=== PATIENT | female | born 1945 | race Caucasian/White ===

== ENCOUNTER 2017-07-09 11:03 | Outpatient (CLI) | payer MEDICARE | END 2017-07-09 11:04 | disposition home or self-care (01) | LOC: BICMAMMO 11:03 | PROVIDERS: ATTEND Obstetrics & Gynecology | DX: Z12.31 Encounter for screening mammogram for malignant neoplasm of breast (principal) | CPT/HCPCS: 77063; 77067 ==

== ENCOUNTER 2018-01-13 08:08 | Outpatient (CLI) | payer MEDICARE, OTHER ==
--- NOTE | 2018-01-13 10:11 | ULT ---
ULTRASOUND CAROTID DOPPLER STANDARD: Date: 01/13/18 HISTORY: I65.23, G25.0. COMPARISON: None. TECHNIQUE: Real-time Pelayo scale, color Doppler, and spectral analysis was performed. FINDINGS: Antegrade flow to both vertebral arteries. No elevated peak systolic velocities within the internal c arotid arteries. IMPRESSION: No hemodynamically significant stenosis. POS: SANCHEZ
--- NOTE | 2018-01-13 13:18 | MRI ---
MRI BRAIN WITHOUT CONTRAST: Date: 01/13/18 HISTORY: Cerebrovascular disease. Bilateral hand tremors for 5 years. COMPARISON: None. TECHNIQUE: Brain MRI is performed without intravenous Gadolinium administration. Multisequential, multiplanar im aging is performed. FINDINGS: No hemorrhage on the axial gradient echo sequence. Calvarium has a normal T1 marrow signal intensity. Midline brain parenchymal structures are unremarka ble. Note is made of a partially empty sella. There are T2 and FLAIR white matter hyperintensities due to chronic small vessel ischemic change. The re is asymmetrically prominent T2 hyperintensity in the right garland radiata, which is presumed to be due to chronic small vessel ischemic changes. No parenchymal mass, mass effect, or midline shift. Brain volume is age-appropriate. Cortical young-wh ite matter differentiation is preserved. No evidence of hydrocephalus. Mild mucosal thickening of the sinuses and mastoid air cells. IMPRESSION: 1. Absent restricted diffusion. No acute infarct. 2. T2 and FLAIR white matter hyperintensities which are presumed to be due to chronic small vessel i schemic change of the white matter. There is a slightly asymmetric T2 and FLAIR white matter hyperint ensity in the right garland radiata without associated restricted diffusion. Asymmetric chronic small vessel ischemic changes are favored. Six month follow-up imaging to ensure stability. POS: SANCHEZ
== END 2018-01-13 08:09 | disposition home or self-care (01) ==
LOC: BICULT 08:08
PROVIDERS: ATTEND Specialist
DX: I63.9 Cerebral infarction, unspecified (principal); D53.9 Nutritional anemia, unspecified; G25.0 Essential tremor; I65.23 Occlusion and stenosis of bilateral carotid arteries; G93.89 Other specified disorders of brain
CPT/HCPCS: 70551; 93880

== ENCOUNTER 2018-07-12 10:53 | Outpatient (CLI) | payer MEDICARE, OTHER ==
--- NOTE | 2018-07-14 11:11 | MMO ---
Bilateral MAMMO Bilat Screen DDI+TOSHIA. CLINICAL HISTORY: Patient is 72 years old and is seen for screening. The patient has no family history of breast cancer. The patient has no personal history of cancer. VIEWS: The views performed were: bilateral craniocaudal with tomosynthesis and bilateral mediolateral oblique with tomosynthesis. FILMS COMPARED: The present examination has been compared to prior imaging studies performed at [facility] on 08/29/1999, 10/06/2000, 10/07/2001, 10/07/2002, 10/18/2003, 12/03/2004, 12/16/2005, 02/24/2007, 02/28/2008, 03/29/2012, 03/31/2013, 04/03/2014, 04/18/2015, 06/30/2016 and 07/09/2017, and at [facility] on 02/28/2009, 03/04/2010 and 03/11/2011. MAMMOGRAM FINDINGS: There are scattered fibroglandular densities. There are stable benign appearing calcifications seen in both breasts. There are no suspicious masses, calcifications or areas of architectural distortion. There are no suspicious masses, suspicious calcifications, or new areas of architectural distortion. IMPRESSION: THERE IS NO MAMMOGRAPHIC EVIDENCE OF MALIGNANCY. A ROUTINE FOLLOW-UP MAMMOGRAM IN 1 YEAR IS RECOMMENDED. THE RESULTS OF THIS EXAM WERE SENT TO THE PATIENT. ACR BI-RADS Category 2 - Benign finding MAMMOGRAPHY NOTE: 1. A negative mammogram report should not delay a biopsy if a dominant of clinically suspicious mass is present. 2. Approximately 10% to 15% of breast cancers are not detected by mammography. 3. Adenosis and dense breasts may obscure an underlying neoplasm.
== END 2018-07-12 10:54 | disposition home or self-care (01) ==
LOC: BICMAMMO 10:53
PROVIDERS: ATTEND Obstetrics & Gynecology
DX: Z12.31 Encounter for screening mammogram for malignant neoplasm of breast (principal)
CPT/HCPCS: 77063; 77067

== ENCOUNTER 2020-02-23 12:12 | Emergency (ER) | payer MEDICARE, OTHER ==
[2020-02-23] MEDS ORDERED: Ondansetron ODT 4 MG TAB ONE (12:30)
[2020-02-23 13:44] LABS: #Lymphocytes 0.4 thou/uL (1.20-3.40); #Monocytes 0.5 thou/uL (0.11-0.59); #Neutrophils 11.6 thou/uL (1.40-6.50); %Eosinophils 0.3 % (0.0-10.0); %Lymphocytes 3.1 % (21.0-51.0); %Monocytes 4.1 % (0.0-10.0); %Neutrophils 92.5 % (42.0-75.0); Hemoglobin 14.3 g/dL (12.0-16.0); Mean Corpuscular HGB CONC 34.4 g/dL (32.0-36.0); Mean Corpuscular Volume 89.9 fL (78.0-98.0); Platelet Count 168 thou/uL (130-400); RBC Distribution Width 11.9 % (11.5-14.5); Red Blood Cell (RBC) Count 4.61 mill/uL (4.20-5.40); White Blood Cell (WBC) Count 12.5 thou/uL (4.8-10.8)
--- NOTE | 2020-02-23 13:54 | RAD ---
XR Pelvis AP STANDARD History: Fall. Pain Comparison: Reference is made to an abdomen pelvis CT November 2019 Findings: Small acetabular osteophytes. Mild sclerosis of the pubic symphysis. Obturator rings are in tact. No acute fracture or malalignment. Mild dextro scoliosis lower lumbar spine. Small phlebolith right hemipelvis. Impression: Mild degenerative change. No acute osseous abnormality.
--- NOTE | 2020-02-23 13:56 | RAD ---
XR Hip Lt 2-3 View History: Fall. Comparison: None. Findings: No acute fracture or malalignment. Left obturator ring is intact. Acetabulum is intact. Impression: No displaced left hip fracture.
--- NOTE | 2020-02-23 14:02 | CT ---
CT CERVICAL SPINE WITH CORONAL AND SAGITTAL REFORMATIONS AND NO IV CONTRAST: HISTORY: Fall, neck pain FINDINGS: Multilevel degenerative changes are present. No fracture, subluxation or facet malalignment is identified. No prevertebral soft tissue swelling is apparent. The visualized lung apices are unremarkable. IMPRESSION: No CT evidence for fracture or traumatic subluxation.
--- NOTE | 2020-02-23 14:03 | CT ---
CT HEAD WITHOUT IV CONTRAST COMPARISON: None HISTORY: Vomiting after a fall one day ago. Patient hit back of head on concrete. TECHNIQUE: Axial CT imaging at 5 mm intervals from vertex through skull base without contrast FINDINGS: There is decreased attenuation in the periventricular white matter which is nonspecific but likely re flective of chronic small vessel ischemic changes. There is mild cerebral volume loss. The ventricular system is normal in size, shape, and position for the degree of sulcal atrophy. There is no evidence of an acute infarction, hemorrhage, mass effect, or midline shift. Skull base has a normal CT appearance. Visualized paranasal sinuses are clear. Osseous structures appear intact. No depressed calvarial fracture is seen. IMPRESSION: 1. No acute intracranial abnormality demonstrated. 2. Chronic small vessel ischemic changes and cerebral volume loss.
[2020-02-23 14:07] LABS: ALT (SGPT) 15 U/L (8-55); AST (SGOT) 16 U/L (5-34); Alkaline Phosphatase 72 U/L (40-110); Anion Gap 15 mmol/L (10-20); BUN (Urea Nitrogen) 14 mg/dL (9.8-20.1); Bilirubin, Total 0.9 mg/dL (0.2-1.2); Calc. Creatinine Clearance 0 mL/min (70-130); Calcium 9.4 mg/dL (7.8-10.44); Carbon Dioxide 25 mmol/L (23-31); Chloride 91 mmol/L (98-107); Estimated GFR-MDRD 67; Globulin 3.5 g/dL (2.4-3.5); Glucose 269 mg/dL (83-110); Lipase 5 U/L (8-78); Potassium 4.5 mmol/L (3.5-5.1); Protein, Total 7.5 g/dL (6.0-8.3); Sodium 126 mmol/L (136-145)
[2020-02-23] MEDS ORDERED: Ketorolac Tromethamine 30 MG/ML VIAL ONE (14:10)
[2020-02-23] MEDS ORDERED: Morphine 4 MG/ML VIAL ONE (14:10)
[2020-02-23] MEDS ORDERED: Metoclopramide HCl 10 MG/2 ML VIAL ONE (14:10)
[2020-02-23] MEDS ORDERED: Acetaminophen 500 MG TAB ONE (14:10)
[2020-02-23] MEDS ORDERED: Metoclopramide 10 MG/10 ML UDCUP ONE (14:10)
--- NOTE | 2020-03-03 17:53 | EKG ---
Test Reason : Blood Pressure : / mmHG Vent. Rate : 074 BPM Atrial Rate : 074 BPM P-R Int : 154 ms QRS Dur : 072 ms QT Int : 402 ms P-R-T Axes : 054 043 054 degrees QTc Int : 446 ms Normal sinus rhythm Normal ECG Confirmed by TAN AC, EVELYN ([id number]), editor managing director BELINDA AN ([id number]) on 03/03/2020 5:52:45 PM Referred By: TAN Confirmed By:EVELYN MADDOX MD
== END 2020-02-23 15:27 | disposition home or self-care (01) ==
LOC: ERS 12:12
DX: S06.0X0A Concussion without loss of consciousness, initial encounter (principal); S14.109A Unspecified injury at unspecified level of cervical spinal cord, initial encounter; S30.0XXA Contusion of lower back and pelvis, initial encounter; R11.2 Nausea with vomiting, unspecified; E11.9 Type 2 diabetes mellitus without complications; E78.5 Hyperlipidemia, unspecified; E78.00 Pure hypercholesterolemia, unspecified; I10 Essential (primary) hypertension; Z79.4 Long term (current) use of insulin; Z79.899 Other long term (current) drug therapy; W01.190A Fall on same level from slipping, tripping and stumbling with subsequent striking against furniture, initial encounter
CPT/HCPCS: 36415; 70450; 72125; 72170; 80053; 83690; 85025; 93005; 96365; 96375; J1885; J2270; J2765; Q0162

== ENCOUNTER 2020-03-06 17:02 | Inpatient (IN) | payer MEDICARE, OTHER ==
[2020-03-06] MEDS ORDERED: Ondansetron ODT 4 MG TAB PO PRN (20:12)
[2020-03-06] MEDS ORDERED: traMADol HCl 50 MG TAB PO PRN ×2 (20:12)
[2020-03-06] MEDS ORDERED: Insulin Regular 300 UNITS/3 ML VIAL SC PRN (20:12)
[2020-03-06] MEDS ORDERED: Morphine 2 MG/ML VIAL SLOW IVP PRN (20:12)
[2020-03-06] MEDS ORDERED: Dextrose 50% Abboject 50 ML SYRINGE SLOW IVP PRN (20:12)
[2020-03-06] MEDS ORDERED: Dextrose 5% in Water 1,000 ML IV PRN (20:12)
[2020-03-06] MEDS ORDERED: Ondansetron PF 4 MG/2 ML Vial IVP PRN (20:12)
[2020-03-06] MEDS: Acetaminophen 500 MG TAB PO SCH (21:27)
[2020-03-06] MEDS: Famotidine/PF 20 mg/2ml Vial SLOW IVP SCH (21:29)
[2020-03-06] MEDS: Dexamethasone 4 mg/ml Vial SLOW IVP SCH (21:30)
[2020-03-06] MEDS: Sodium Chloride 0.9% 1,000 ML IV SCH (23:34)
[2020-03-06 23:45] VITALS: BMI 27.8
--- NOTE | 2020-03-07 02:13 | CON ---
DATE OF CONSULTATION: 03/06/2020 HISTORY OF PRESENT ILLNESS: The patient is a 74-year-old female with a past medical history of hypertension, type 2 diabetes, who reports 12 days ago she had a mechanical fall. After this fall, she presented to the [facility] where she was evaluated with noncontrast head CT of the head and neck, as well as plain films of the pelvis and hips, which were all negative. She was discharged to home, but has had ongoing significant low back pain. She followed up with her PCP and was prescribed tramadol and Tylenol No. 3, which she is alternating regularly. The patient reports she developed severe constipation and urinary retention over the last three days. She presented to the ER for further evaluation. She had a noncontrast CT of the abdomen and pelvis, which was notable for severe L1 burst fracture with retropulsion and probable small fragment that indents the thecal sac. She was found to have approximately a 1000 mL retention within the bladder. This was drained with a Flanagan catheter. She was also found to have significant constipation and the patient was fecally disimpacted by the emergency department. I recommended a TLSO Clamshell brace, which she was placed in and she was transferred to [facility] for admission by the Trauma Service and neurosurgical consult. The patient denies any leg pain, weakness, numbness, tingling. The patient was given 10 mg of Decadron in the emergency department. PAST MEDICAL HISTORY: Hypertension, type 2 diabetes. PAST SURGICAL HISTORY: Cholecystectomy, hysterectomy. SOCIAL HISTORY: The patient is a former smoker. She does not drink or use any drugs. She lives at home with her family. ALLERGIES: SHE HAS NO KNOWN DRUG ALLERGIES. CURRENT MEDICATIONS: 1. Escitalopram. 2. Levothyroxine. 3. Pantoprazole. 4. Hydrochlorothiazide. 5. Clonazepam. 6. Telmisartan. 7. Desmopressin. 8. Aspirin 81. 9. Nitrofurantoin. REVIEW OF SYSTEMS: Per HPI. PHYSICAL EXAMINATION: VITAL SIGNS: Stable. GENERAL: Comfortable, no acute distress. HEAD: Normocephalic and atraumatic. EYES: PERRLA. Extraocular movements intact. ENT: [place], intact, moist. She has normal voice. NECK: Nontender. Free active range of motion. No meningismus or nuchal rigidity. CARDIAC: Regular rate and rhythm. PULMONARY: Symmetric chest expansion. No evidence of dyspnea. MUSCULOSKELETAL: She is moving all 4s easily in the bed. No focal motor weakness. No reflex asymmetry. Sensation is intact to light touch. BACK: TLSO brace appears to be fitting appropriately. NEUROLOGIC: A and O x4. No gross motor deficits are appreciated. ASSESSMENT AND PLAN: This is a 74-year-old female, who fell 12 days ago, who returned to the ER for ongoing back pain and development of constipation and urinary retention. She has on CT a significant L1 burst fracture with retropulsion with possible small fracture fragment, which indents the thecal sac. She should wear her TLSO brace at all times and we will keep her on bed press with Flanagan in place. We will keep her on steroids, Decadron 4 mg q.6h. We will make her n.p.o. at midnight. Discussed this plan with Dr. Winchester and he will relook the patient in the morning to discuss further. Job ID: [id number]
--- NOTE | 2020-03-07 02:21 | HP ---
TRAUMA ATTENDING DOCTOR: Dr. Sanchez. Activation level not applicable. HISTORY OF PRESENT ILLNESS: This is a 74-year-old female, who presented as a transfer from [facility] where the patient was seen and evaluated, status post mechanical fall two weeks ago. Per patient and ER report, she sustained a fall at her home while tying her shoes. The patient stood up, became dizzy and fell. She was seen and evaluated at that time and was discharged home. The patient reports that over the past 12 days, she has had progressive difficulty ambulating, increasing back pain. She further reports that she has been unable to urinate for the last three days. She also reports constipation. The patient was evaluated in [facility] and found to have an L1 burst fracture. Neurosurgery was notified and Trauma Services was asked to admit. Upon my evaluation this evening, the patient is somewhat drowsy, but able to converse briefly. She states that her pain is currently zero. ALLERGIES: NONE. PAST MEDICAL HISTORY: Chronic medical illnesses include hypertension, diabetes, hyperlipidemia, hypothyroidism, and dyslipidemia. HOME MEDICATIONS: Include: 1. Synthroid. 2. Pantoprazole. 3. Hydrochlorothiazide. 4. Clonazepam. 5. Telmisartan. 6. Desmopressin. 7. Aspirin 81 mg. FAMILY HISTORY: Noncontributory. SURGICAL HISTORY: Includes cholecystectomy, hysterectomy. SOCIAL HISTORY: Lives at home. Endorses occasional alcohol use. Former smoker, denies current use. Denies illicit drug use. REVIEW OF SYSTEMS: The remainder of a 10-point review of systems was performed and negative except as indicated in the HPI. PHYSICAL EXAMINATION: VITAL SIGNS: On evaluation include a temperature of 98.4, pulse 60, respirations 16, O2 saturation 96% on room air, blood pressure 143/70. GENERAL: Elderly appearing female, in no acute distress, lying in bed. Clamshell TLSO in place. HEENT: Head is normocephalic, atraumatic. Eyes, pupils are PERRL. Extraocular movements are intact. NECK: Supple. Trachea is midline. There is no midline tenderness to palpation. CHEST: Nontender to palpation. Normal work of breathing. Symmetric rise. CARDIOVASCULAR: Regular rate and rhythm. ABDOMEN: Benign. MUSCULOSKELETAL: Moves all extremities x4, 5/5 strength. NEURO: GCS is 15. No focal deficit is noted. No sensory deficit noted. LABORATORY FINDINGS: WBC 12.6, hemoglobin 14.8, hematocrit 42.2, platelet count 303. Sodium 127, potassium 3.5, chloride 87, carbon dioxide 29, BUN 23, creatinine 0.94, and glucose 207. AST and ALT within normal limits. Troponin less than 0.010. TSH within normal limits. Urinalysis reveals ketonuria, leukocyte esterase, positive wbc's 11-20, rare bacteria, and there were some squamous cells present in sample. RADIOGRAPHIC FINDINGS: 1. Chest x-ray negative for acute cardiopulmonary process. 2. CT of the abdomen and pelvis demonstrated an L1 burst fracture. MRI of the lumbar spine demonstrated an L1 burst fracture with retropulsion indenting the spinal cord and high-grade degenerative disk disease at L5-S1. 3. EKG with nonspecific T-wave changes, borderline prolonged QTc, sinus rhythm. ASSESSMENT: 1. Status post fall secondary to dizziness. 2. L1 burst fracture. 3. Acute traumatic pain. 4. Urinary retention. 5. Constipation. 6. Possible urinary tract infection, present on admission. 7. Hypochloremic hyponatremia. 8. History of diabetes. PLAN: Admit to Trauma Services. The patient has been seen and evaluated by Neurosurgery. Clamshell TLSO has been ordered and is in place. Patient may sit up in bed with TLSO in place; however, neurosurgery recommended bed rest until decision is made on surgical versus nonsurgical treatment. Home aspirin to be held at this time. Decadron q.6 hours per neurosurgical recommendations. The patient should be n.p.o. after midnight. Flanagan for urinary retention. Empiric antibiotics and follow urine culture. Begin bowel regimen for constipation. Pain management via p.o. and IV analgesics. PT and OT once cleared by Neurosurgery. Other supportive care as indicated. Plan for admission was discussed with the patient at bedside and all questions were answered prior to this dictation. Trauma Attending has been notified of admission. Job ID: [id number]
[2020-03-07] MEDS: Dexamethasone 4 mg/ml Vial SLOW IVP SCH ×4 (02:55→21:27)
[2020-03-07] MEDS: Acetaminophen 500 MG TAB PO SCH ×3 (02:57→15:11)
[2020-03-07 06:58] LABS: #Lymphocytes 0.5 thou/uL (1.20-3.40); #Monocytes 0.1 thou/uL (0.11-0.59); #Neutrophils 8.3 thou/uL (1.40-6.50); %Basophils 0.5 % (0.0-1.0); %Eosinophils 0.2 % (0.0-10.0); %Lymphocytes 5.8 % (21.0-51.0); %Monocytes 0.9 % (0.0-10.0); %Neutrophils 92.6 % (42.0-75.0); Hemoglobin 15.1 g/dL (12.0-16.0); Mean Corpuscular Hemoglobin 31.1 pg (27.0-31.0); Mean Corpuscular Volume 91.7 fL (78.0-98.0); Mean Platelet Volume 7.4 fL (7.4-10.4); Platelet Count 291 thou/uL (130-400); Red Blood Cell (RBC) Count 4.84 mill/uL (4.20-5.40)
[2020-03-07 07:11] LABS: Phosphorus 3.6 mg/dL (2.3-4.7)
[2020-03-07 07:14] LABS: Anion Gap 18 mmol/L (10-20); BUN (Urea Nitrogen) 17 mg/dL (9.8-20.1); Calc. Creatinine Clearance 85 mL/min (70-130); Calcium 8.9 mg/dL (7.8-10.44); Carbon Dioxide 22 mmol/L (23-31); Chloride 94 mmol/L (98-107); Estimated GFR-MDRD 77; Glucose 179 mg/dL (83-110); Magnesium 2.2 mg/dL (1.6-2.6); Potassium 3.6 mmol/L (3.5-5.1); Sodium 130 mmol/L (136-145)
[2020-03-07] MEDS: Sodium Chloride 0.9% 1,000 ML IV SCH (08:48)
[2020-03-07] MEDS: Famotidine/PF 20 mg/2ml Vial SLOW IVP SCH ×2 (08:48→21:27)
[2020-03-07] MEDS: Senokot S 8.6-50 MG TAB PO SCH ×2 (08:49→22:43)
[2020-03-07] MEDS: Sulfameth/Trimethoprim DS 800-160mg TAB PO SCH ×2 (08:49→21:26)
[2020-03-07] MEDS: Cyclobenzaprine 10 MG TAB PO PRN ×2 (08:50→15:43)
[2020-03-07] MEDS: Polyethylene Glycol 3350 17 GM Packet PO SCH (08:50)
--- NOTE | 2020-03-07 09:32 | PRG ---
DATE OF SERVICE: 03/07/2020 SUBJECTIVE: The patient was seen and examined. I agree with Christina Treviño's evaluation on 03/06/2020. The patient is a 74-year-old woman who had a fall nearly 2 weeks ago. She has had progressive back pain, requiring extensive pain medication. Ultimately, was evaluated in the emergency room last night. At that time, she was found to have urinary retention, and a catheter was placed draining 1000 mL of urine. She also has had constipation of bowel and had manual disimpaction. OBJECTIVE: NEUROLOGIC: The patient's motor and sensory function is full. Good strength throughout the lower extremity was obtained. Sensory exam was subjectively normal including in the groin area. She reports she had full feeling of the urinary catheter when it was placed. IMAGING: Including MRI and CT reveal L1 burst fracture with some retropulsion. On the MRI, it appears there is some slight contact of the retropulsed fragment with the tip of the conus. The conus however was not deviated. There are substantial CSF behind the conus. On the CT scan, the degree of compression is much more modest. IMPRESSION AND PLAN: The patient has an L1 burst fracture. She has urinary retention and constipation of bowel. While this could be related to her recent narcotic use, it may also be related to a primary conus injury. She has no other neurologic manifestations. The overall degree of compression of the conus is modest in my opinion. In my opinion, a trial of non-operative management with bracing as well as steroids should be tried. I am not certain that surgery would have any benefit with regard to improving conus function as the degree of compression is relatively modest. Furthermore posterior surgery alone would have little benefit given the lack of any compression and ability to decompress in directly posteriorly. Any meaningful efforts of decompression would likely involve efforts to access the anterior vertebral body with the associated morbidity and extensive surgery, particularly at her age. I think more likely that if this does represent conus dysfunction, it is more contusional and less active compression and therefore, not likely response to surgery. We will treat with TLSO bracing for now with close observation. We will also use Decadron 4 q.6. Job ID: [id number]
[2020-03-07] MEDS: HumaLOG 300 UNITS/3 ML VIAL SC PRN ×3 (13:13→21:27)
[2020-03-07] MEDS: Acetaminophen 325 MG TAB PO SCH ×2 (15:42→21:26)
--- NOTE | 2020-03-07 16:26 | PRG ---
DATE OF SERVICE: 03/07/2020 SUBJECTIVE: The patient was admitted earlier this morning status post fall approximately 12 days ago. She had been evaluated initially, but did not complain of back pain. She returned to the [facility], where she underwent further evaluation, at this time primarily complaining of low back pain. CT showed an L1 burst fracture, at which time she was transferred to our facility for neurosurgical evaluation. The patient was neurologically intact with the exception of reported constipation and urinary retention. This is somewhat complicated by her history of bladder dysfunction requiring Botox injection and a history of irritable bowel syndrome. She reports that she has had in the past due to her irritable bowel syndrome, episodes of constipation and at times diarrhea. This morning, she was evaluated again by Neurosurgery, specifically Dr. Saini, who reviewed her CTs and her MRIs and agreed with continuing conservative management with a TLSO brace and Decadron 4 mg every 6 hours. The patient was started on a diet this morning, which she is tolerating. Her pain is controlled. She will begin working with physical and occupational therapy today. PHYSICAL EXAMINATION: VITAL SIGNS: Temperature is 98.0, heart rate 64, blood pressure 158/77, respirations 16, and oxygen saturation 92% on room air. GENERAL: The patient is resting comfortably in bed. She is awake, alert, conversant, and appropriate. [place] Coma Scale is 15. HEENT: Unremarkable. LUNGS: Clear to auscultation with good inspiratory and expiratory effort, it is somewhat limited due to her brace. HEART: Regular rate and rhythm. ABDOMEN: Soft with active bowel sounds. EXTREMITIES: Neurovascularly intact x4. LABORATORY FINDINGS: White blood cell count 9.0, hemoglobin 15.1, hematocrit 44.4, platelets 291. Sodium 130, potassium 3.6, chloride 94, CO2 of 22, BUN 17, creatinine 0.74, glucose 179, magnesium 2.2, and phosphorus 3.6. There are no radiographs to review this morning. ASSESSMENT AND PLAN: 1. Status post ground level fall with delayed presentation of 12 days. 2. L1 burst fracture, neurologically stable at this time with questionable urinary retention and constipation due to this injury. 3. Suspected urinary tract infection on admission. Initial culture results at 12 hours showed no growth. We will continue on antibiotics. 4. Chronic hyponatremia. 5. History of diabetes, irritable bowel syndrome, and bladder dysfunction. PLAN: Plan will be to begin physical and occupational therapy, continue steroids per Neurosurgery, pain control, diet, pulmonary toilet, gastritis and mechanical VTE prophylaxis. The patient continues to be nonoperative. We will begin chemical VTE prophylaxis within next 24 hours. The patient was evaluated this morning with Dr. Bey during rounds. Job ID: [id number]
[2020-03-07] MEDS ORDERED: Nitrofurantoin Monohyd/M-Cryst 100 MG CAP PO SCH (21:00)
[2020-03-07] MEDS: Ibuprofen 600 MG TAB PO PRN (21:25)
[2020-03-07] MEDS: Atorvastatin Calcium 20 MG TAB PO SCH (21:26)
[2020-03-07] MEDS: clonazePAM 0.5 MG TAB PO SCH (21:27)
[2020-03-07] MEDS: Desmopressin 0.2 mg Tablet PO SCH (22:41)
[2020-03-08] MEDS: Acetaminophen 325 MG TAB PO SCH ×4 (03:42→21:14)
[2020-03-08] MEDS: Dexamethasone 4 mg/ml Vial SLOW IVP SCH ×4 (03:43→15:32)
[2020-03-08] MEDS: Levothyroxine Sodium 100 MCG TAB PO SCH (06:02)
[2020-03-08] MEDS: HumaLOG 300 UNITS/3 ML VIAL SC PRN ×3 (07:10→16:05)
[2020-03-08] MEDS: clonazePAM 0.5 MG TAB PO SCH ×2 (09:48→21:14)
[2020-03-08] MEDS: Escitalopram Oxalate 10 mg Tablet PO SCH (09:48)
[2020-03-08] MEDS: Senokot S 8.6-50 MG TAB PO SCH ×2 (09:48→21:15)
[2020-03-08] MEDS: Polyethylene Glycol 3350 17 GM Packet PO SCH (09:48)
[2020-03-08] MEDS: Hydrochlorothiazide 25 MG TAB PO SCH (09:48)
[2020-03-08] MEDS: Famotidine/PF 20 mg/2ml Vial SLOW IVP SCH ×2 (09:48→21:16)
[2020-03-08] MEDS: Losartan 25 MG TAB PO SCH (09:48)
[2020-03-08] MEDS: Sulfameth/Trimethoprim DS 800-160mg TAB PO SCH ×2 (09:49→21:14)
--- NOTE | 2020-03-08 10:13 | CON ---
DATE OF CONSULTATION: 03/08/2020 Ms. Sotelo is resting comfortably. She had a bowel movement at the bedside commode, which she reports felt normal to her. We removed the Flanagan and she has had one in-and-out catheterization, but also has had some spontaneous voiding, that was successful. She remains neurologically preserved otherwise. We will continue with the plan of conservative management of her L1 burst fracture. I still cannot exclude a primary conus injury, but given the lack of significant compression of the conus remain constant that the conservative management and bracing is the highest likelihood of recovery. Per situation, it is obviously complicated by the long history of urinary issues and previous Botox injections in this regard. Going very slowly with her mobilization. For today, we will continue with sitting upright at the edge of the bed into the bedside commode only. If things are stable tomorrow, we will allow her to program trainer the room and we will check an upright x-ray. She will need a rehab screen. Job ID: [id number]
--- NOTE | 2020-03-08 10:46 | PRG ---
DATE OF SERVICE: 03/08/2020 SUBJECTIVE: I visited the patient at the bedside this morning. She continues to have good lower extremity sensation and function. We attempted to remove her Flanagan yesterday, but she has continued to have some urinary retention. She required additional I's and O's yesterday evening. This morning, however, she is passing gas and feels like she may be able to try to urinate and have a bowel movement. OBJECTIVE: GENERAL: She is awake, alert, in no acute distress. EXTREMITIES: She has free active range of motion of all extremities. No focal motor weakness. Her TLSO brace is fitting appropriately. ASSESSMENT AND PLAN: We will try to get her up on a bedside commode to see if her bowel and bladder function have improved. We will follow up this progress closely. Continue to have her work too. Will allow her to sit on side of bed or bedside commode. Will check upright Lspine xray in the morning. If doing well may advance to standing tomorrow. Job ID: [id number] MTDD
[2020-03-08] MEDS: Atorvastatin Calcium 20 MG TAB PO SCH (21:15)
[2020-03-08] MEDS: Desmopressin 0.2 mg Tablet PO SCH (21:16)
[2020-03-08] MEDS: Insulin Regular 300 UNITS/3 ML VIAL SC PRN (21:20)
--- NOTE | 2020-03-08 21:46 | PRG ---
DATE OF SERVICE: 03/08/2020 SUBJECTIVE: The patient remains on the surgical floor. She is status post ground level fall with delayed presentation and is currently undergoing treatment for an L1 burst fracture. She has a possibility of urinary retention, constipation due to this injury, but it is complicated by her previous history of Botox injections for dysfunctional bladder and irritable bowel syndrome. Overnight, the patient had no issues. Overnight, she had one in and out catheterization otherwise did well. Her pain was controlled. She is tolerating a diet today. She had some urinary retention, requiring Flanagan being placed. She did also have a bowel movement. She worked with Physical and Occupational Therapy. Sitting at the side of the bed and tomorrow we will plan on having her more. Per Neurosurgery, her mobility will be closely guarded. Plans also for repeat standing radiographs tomorrow. PHYSICAL EXAMINATION: VITAL SIGNS: Temperature 97.8, heart rate 61, blood pressure 144/79, respirations 16, and oxygen saturation 93% on room air. GENERAL: The patient is resting comfortably in bed. She is awake, alert, conversant, appropriate. [place] Coma Scale is 15. HEENT: Unremarkable. LUNGS: Clear to auscultation bilaterally. HEART: Regular rate and rhythm. ABDOMEN: Soft with active bowel sounds. EXTREMITIES: Neurovascularly intact x4. LABORATORY DATA: Point of care testing shows continued elevated blood glucose, ranging from 240 to 340. There are no radiographs reviewed this morning. ASSESSMENT AND PLAN: 1. Status post ground level fall with delayed presentation of 12 days, currently hospital day 2. 2. L1 burst fracture. Neurologically stable at this time with questionable urinary retention and constipation due to this injury. 3. Chronic hyponatremia. 4. History of diabetes. 5. Irritable bowel syndrome. 6. Bladder dysfunction. PLAN: Plan will be again follow Neurosurgery's guidance regarding physical and occupational therapy, radiographs tomorrow. We will continue pain control, pulmonary toilet, gastritis, and mechanical VTE prophylaxis. We will discuss chemical VTE prophylaxis with Neurosurgery. We have also increased her to moderate sliding scale for her blood sugars. Post acute screening has been placed. Job ID: [id number]
[2020-03-08 21:53] LABS: Bilirubin Negative (Negative); Blood, Urine Negative (Negative); Clarity Clear (Clear); Glucose, Urine (Dipstick) Greater than 1000 mg/dL (Negative); Ketone, Urine Negative (Negative); Leukocyte 75 Leu/uL (Negative); Nitrite Negative (Negative); Protein, Urine (Dipstick) Negative (Neg-Trace); RBC/HPF 0-3 HPF (0-3); Squamous Epithelial 0-3 HPF (0-3); Urobilinogen Normal mg/dL (Less than 2); WBC/HPF 21-50 HPF (0-3)
[2020-03-08 22:03] LABS: Bacteria/HPF 1+ HPF (None Seen); Yeast-Budding 2+ HPF (None Seen)
[2020-03-08 22:04] LABS: Urine Culture Reflex Yes Yes
[2020-03-09] MEDS: cefTRIAXone\\ROCEPHIN 1 GM in Sodium Chloride 0.9% 100 ML IVPB SCH ×2 (00:02→22:29)
[2020-03-09] MEDS: Acetaminophen 325 MG TAB PO SCH ×4 (05:30→19:54)
[2020-03-09] MEDS: Ibuprofen 600 MG TAB PO PRN (05:34)
[2020-03-09] MEDS: Levothyroxine Sodium 100 MCG TAB PO SCH (05:34)
[2020-03-09] MEDS: Insulin Regular 300 UNITS/3 ML VIAL SC PRN ×4 (05:34→22:42)
[2020-03-09 05:35] LABS: #Lymphocytes 2.3 thou/uL (1.20-3.40); #Neutrophils 8.9 thou/uL (1.40-6.50); %Eosinophils 0.3 % (0.0-10.0); %Lymphocytes 18.6 % (21.0-51.0); %Monocytes 8.2 % (0.0-10.0); %Neutrophils 72.9 % (42.0-75.0); Mean Corpuscular HGB CONC 33.7 g/dL (32.0-36.0); Mean Corpuscular Hemoglobin 30.3 pg (27.0-31.0); Mean Corpuscular Volume 89.9 fL (78.0-98.0); Mean Platelet Volume 7.3 fL (7.4-10.4); Platelet Count 329 thou/uL (130-400); Red Blood Cell (RBC) Count 4.96 mill/uL (4.20-5.40); White Blood Cell (WBC) Count 12.2 thou/uL (4.8-10.8)
[2020-03-09 05:56] LABS: Anion Gap 13 mmol/L (10-20); BUN (Urea Nitrogen) 18 mg/dL (9.8-20.1); Calc. Creatinine Clearance 75 mL/min (70-130); Calcium 8.9 mg/dL (7.8-10.44); Carbon Dioxide 25 mmol/L (23-31); Chloride 96 mmol/L (98-107); Estimated GFR-MDRD 66; Glucose 181 mg/dL (83-110); Magnesium 2.1 mg/dL (1.6-2.6); Phosphorus 3.1 mg/dL (2.3-4.7); Potassium 3.6 mmol/L (3.5-5.1); Sodium 130 mmol/L (136-145)
[2020-03-09] MEDS: clonazePAM 0.5 MG TAB PO SCH ×2 (09:05→19:55)
[2020-03-09] MEDS: Losartan 25 MG TAB PO SCH (09:05)
[2020-03-09] MEDS: Senokot S 8.6-50 MG TAB PO SCH ×2 (09:05→19:55)
[2020-03-09] MEDS: Hydrochlorothiazide 25 MG TAB PO SCH (09:06)
[2020-03-09] MEDS: Escitalopram Oxalate 10 mg Tablet PO SCH (09:08)
[2020-03-09] MEDS: Nitrofurantoin Monohyd/M-Cryst 100 MG CAP PO SCH ×2 (09:08→19:55)
[2020-03-09] MEDS: Polyethylene Glycol 3350 17 GM Packet PO SCH (09:08)
[2020-03-09] MEDS: Sulfameth/Trimethoprim DS 800-160mg TAB PO SCH ×2 (09:08→19:56)
[2020-03-09] MEDS: Famotidine/PF 20 mg/2ml Vial SLOW IVP SCH ×2 (09:19→19:56)
--- NOTE | 2020-03-09 09:31 | PRG ---
DATE OF SERVICE: 03/09/2020 SUBJECTIVE: We continue to monitor the patient's bowel and bladder progress closely. Yesterday, she was able to have a small bowel movement and urinate a very small amount. Unfortunately, Flanagan catheter did have to be replaced due to ongoing urinary retention. We have tried minimizing her narcotics and this seems to have helped some. An upright L-spine x-ray was ordered today, but is not yet completed. We will continue to keep her on very light precautions with only sitting on the side of the bed for short periods. She is not cleared for standing or walking. OBJECTIVE: On exam this morning, she is awake, comfortable. She is moving her legs easily in the bed. Sensation is intact to light touch. PLAN: We will follow her x-rays results closely. I will continue to trend down her Decadron. We will go ahead and advance her activity to standing at the bedside for a short period of time and continue working with Physical Therapy. Job ID: [id number]
--- NOTE | 2020-03-09 10:25 | RAD ---
LUMBAR SPINE 2 VIEWS: HISTORY: L1 burst fracture, back pain. FINDINGS/IMPRESSION: A burst fracture of L1 with associated mild posterior retropulsion is again seen as on the MRI of . There are degenerative changes with dextroscoliosis of the lumbar spine. POS: MELVINA
[2020-03-09] MEDS: Dexamethasone 1 MG TAB PO SCH ×3 (10:50→19:56)
--- NOTE | 2020-03-09 11:09 | ULT ---
BILATERAL LOWER EXTREMITY VENOUS DOPPLER ULTRASOUND: HISTORY: Bilateral lower extremity edema and pain. TECHNIQUE: Pelayo scale ultrasound with color flow and spectral Doppler imaging of the deep venous systems of the lower extremities was performed bilaterally. FINDINGS: There is good flow, compression, and augmentation noted in the common femoral, femoral, deep femoral, popliteal, posterior tibial, and greater saphenous veins on either side. IMPRESSION: No evidence of deep vein thrombosis in either lower extremity. POS: ROULAA
[2020-03-09] MEDS: Atorvastatin Calcium 20 MG TAB PO SCH (19:56)
[2020-03-09] MEDS: Desmopressin 0.2 mg Tablet PO SCH (19:57)
--- NOTE | 2020-03-09 20:43 | PRG ---
DATE OF SERVICE: 03/09/2020 SUBJECTIVE: The patient is currently on the surgical floor. She is status post ground level fall with delayed presentation, in which she sustained an L1 burst fracture. She has been treated in a full-time TLSO brace. Overnight, she had no issues. Yesterday, she underwent Flanagan placement for some urinary retention. We also started her on Urecholine and the plan is to discontinue her Flanagan in the morning and begin bladder training. The patient was evaluated by Neurosurgery and they are continuing to cautiously advance her physical therapy. They have also started to taper her steroids. We have asked Case Management to begin working on placement. OBJECTIVE: VITAL SIGNS: Temperature is 97.8, heart rate 59, blood pressure 128/51, respirations 18, oxygen saturation 95% on room air. GENERAL: The patient is resting comfortably in bed. She is awake, conversant, appropriate. Ambika Coma Scale is 15. HEENT: Unremarkable. LUNGS: Clear to auscultation with moderate inspiratory and expiratory effort, primarily impeded by her brace. HEART: Regular rate and rhythm. ABDOMEN: Soft, nontender with active bowel sounds. EXTREMITIES: Neurovascularly intact x4. LABORATORY FINDINGS: White blood cell count 12.2, hemoglobin 15.0, hematocrit 44.6, platelets 329. Sodium 130, potassium 3.6, chloride 96, CO2 of 25, BUN 18, creatinine 0.84, glucose 181, magnesium 2.1, phosphorus 3.1. There are no radiographs to review this morning. ASSESSMENT: 1. Status post ground level fall with delayed presentation of approximately 12 days. Currently, hospital day 3. 2. L1 burst fracture. Neurologically stable at this time with questionable urinary retention, constipation due to this injury. 3. Chronic hyponatremia. 4. History of diabetes, hyperglycemia improved with a moderate sliding scale and decreasing steroid use. 5. History of irritable bowel syndrome. 6. History of bowel dysfunction prior to this injury. PLAN: Will be to continue physical and occupational therapy per Neurosurgery guidance. Bilateral ultrasound to rule out VTE in the extremities. We will discuss chemical VTE prophylaxis and possible filter placement if needed. We will await placement decision. Job ID: [id number]
[2020-03-09] MEDS ORDERED: Hydrochlorothiazide 25 MG TAB PO SCH (23:30)
[2020-03-10] MEDS: Ibuprofen 600 MG TAB PO PRN ×2 (04:32→21:36)
[2020-03-10] MEDS: Acetaminophen 325 MG TAB PO SCH ×3 (04:32→14:49)
[2020-03-10] MEDS: Levothyroxine Sodium 100 MCG TAB PO SCH (05:04)
[2020-03-10] MEDS: Insulin Regular 300 UNITS/3 ML VIAL SC PRN ×4 (05:11→20:24)
[2020-03-10] MEDS: Polyethylene Glycol 3350 17 GM Packet PO SCH (08:35)
[2020-03-10] MEDS: Senokot S 8.6-50 MG TAB PO SCH ×2 (08:36→20:10)
[2020-03-10] MEDS: Losartan 25 MG TAB PO SCH (08:36)
[2020-03-10] MEDS: Escitalopram Oxalate 10 mg Tablet PO SCH (08:37)
[2020-03-10] MEDS: Hydrochlorothiazide 25 MG TAB PO SCH (08:37)
[2020-03-10] MEDS: clonazePAM 0.5 MG TAB PO SCH ×2 (08:37→20:10)
[2020-03-10] MEDS: Dexamethasone 1 MG TAB PO SCH ×2 (08:37→20:10)
[2020-03-10] MEDS: Nitrofurantoin Monohyd/M-Cryst 100 MG CAP PO SCH (08:37)
[2020-03-10] MEDS: Sulfameth/Trimethoprim DS 800-160mg TAB PO SCH (08:38)
[2020-03-10] MEDS: Famotidine/PF 20 mg/2ml Vial SLOW IVP SCH ×2 (08:40→20:10)
--- NOTE | 2020-03-10 12:32 | PRG ---
DATE OF SERVICE: 03/10/2020 Ms. Neely continues to do well. The Flanagan was removed last night and she has had three spontaneous voids with satisfactory residuals. She remains neurologically intact and is keen to get more out of bed. Upright x-rays yesterday were satisfactory. IMPRESSION AND PLAN: Canal mobilized fully in her TLSO brace. I am optimistic that her urinary and bowel function will normalize. I am not planning on any surgical intervention. She can go to rehab. I will plan on a 4-week followup with x-rays. Job ID: [id number]
[2020-03-10] MEDS: Cyclobenzaprine 10 MG TAB PO PRN (15:57)
[2020-03-10] MEDS ORDERED: Acetaminophen/Codeine 30-300mg Tablet PO PRN ×2 (17:02)
--- NOTE | 2020-03-10 18:53 | PRG ---
DATE OF SERVICE: 03/10/2020 SUBJECTIVE: The patient remains on the surgical floor. She is hospital day 4 status post fall with remote presentation, in which she sustained an L1 burst fracture. In the previous 2 days, Neurosurgery has recommended slowly progressing with her therapy. Yesterday, she underwent radiographs of her L-spine, which showed that she had no collapse and was stable at this time and Dr. Saini recommends advancing her therapy and she may be transferred to rehab when bed is available. The patient reports her pain is controlled. She is tolerating a diet. We discontinued her Flanagan that she had for urinary retention and she has had three voids since then with minimal residuals. She did have Urecholine started also. We will also resume her home medications. PHYSICAL EXAMINATION: VITAL SIGNS: Temperature is 97.8, heart rate 65, blood pressure 149/80, respirations 14, oxygen saturation is 96% on room air. GENERAL: The patient is resting comfortably in bed. She is awake, alert, conversant, appropriate. Ambika Coma Scale is 15. HEENT: Unremarkable. LUNGS: Clear to auscultation with moderate inspiratory and expiratory effort. HEART: Regular rate and rhythm. ABDOMEN: Soft, nontender with active bowel sounds. EXTREMITIES: Neurovascularly intact x4. LABORATORY DATA: There are no labs or radiographs to review this morning. ASSESSMENT AND PLAN: 1. Status post ground level fall with delayed presentation of approximately 12 days, currently hospital day 4. 2. L1 burst fracture, neurologically stable at this time. 3. Urinary retention, resolved. 4. Constipation that is possibly related to her spinal injury versus her IBS. 5. History of diabetes, stable with difficulty controlling. Steroids are being tapered by Neurosurgery. 6. History of irritable bowel syndrome and bladder dysfunction prior to the injury. PLAN: Plan will be to continue working with Physical and Occupational therapy, advancing as directed. We will begin VTE prophylaxis as we have been giving the okay by Neurosurgery and we will continue working on placement. Job ID: [id number]
[2020-03-10] MEDS: Atorvastatin Calcium 20 MG TAB PO SCH (20:10)
[2020-03-11] MEDS: Cyclobenzaprine 10 MG TAB PO PRN (04:22)
[2020-03-11] MEDS: Insulin Regular 300 UNITS/3 ML VIAL SC PRN ×3 (04:56→16:16)
[2020-03-11] MEDS: Levothyroxine Sodium 100 MCG TAB PO SCH (04:56)
[2020-03-11] MEDS: Losartan 25 MG TAB PO SCH (08:03)
[2020-03-11] MEDS: Polyethylene Glycol 3350 17 GM Packet PO SCH (08:03)
[2020-03-11] MEDS: clonazePAM 0.5 MG TAB PO SCH (08:04)
[2020-03-11] MEDS: Escitalopram Oxalate 10 mg Tablet PO SCH (08:04)
[2020-03-11] MEDS: Hydrochlorothiazide 25 MG TAB PO SCH (08:04)
[2020-03-11] MEDS: Senokot S 8.6-50 MG TAB PO SCH (08:04)
[2020-03-11] MEDS: Famotidine/PF 20 mg/2ml Vial SLOW IVP SCH (08:05)
[2020-03-11] MEDS ORDERED: Dexamethasone 1 MG TAB PO SCH (09:00)
[2020-03-11 11:40] VITALS: TEMP 97.6
[2020-03-11 15:18] VITALS: BP 108/73
[2020-03-11] MEDS ORDERED: Enoxaparin Sodium 40 MG/0.4 ML SYRINGE SC SCH (16:00)
[2020-03-12] MEDS ORDERED: Enoxaparin Sodium 40 MG/0.4 ML SYRINGE SC SCH (09:00)
[2020-03-12] MEDS ORDERED: Dexamethasone 1 MG TAB PO SCH (09:00)
== END 2020-03-11 18:24 | DRG 552 ==
LOC: SJJU 17:08
PROVIDERS: ADMIT Specialist; ATTEND Specialist
PROC: 0T9B70Z Drainage of Bladder with Drainage Device, Via Natural or Artificial Opening (ICD-10-PCS; principal; 2020-03-06)
DX: S32.011A Stable burst fracture of first lumbar vertebra, initial encounter for closed fracture (principal); N39.0 Urinary tract infection, site not specified; E87.1 Hypo-osmolality and hyponatremia; W18.30XA Fall on same level, unspecified, initial encounter; Z20.828 Contact with and (suspected) exposure to other viral communicable diseases; K59.00 Constipation, unspecified; I10 Essential (primary) hypertension; E11.9 Type 2 diabetes mellitus without complications; E78.5 Hyperlipidemia, unspecified; E03.9 Hypothyroidism, unspecified; R33.9 Retention of urine, unspecified; E87.8 Other disorders of electrolyte and fluid balance, not elsewhere classified; K58.9 Irritable bowel syndrome, unspecified; Z79.890 Hormone replacement therapy; Z79.82 Long term (current) use of aspirin; Z79.899 Other long term (current) drug therapy; Z90.49 Acquired absence of other specified parts of digestive tract; Z90.710 Acquired absence of both cervix and uterus; Z87.891 Personal history of nicotine dependence
CPT/HCPCS: 36415; 36416; 72100; 80048; 81001; 83735; 84100; 85025; 87086; 93970; J0696; J1100; J1650; J1815; J2405; J3490; J8540; S0028

== ENCOUNTER 2020-04-09 10:00 | Outpatient (CLI) | payer MEDICARE, OTHER ==
--- NOTE | 2020-04-09 10:40 | RAD ---
XR Lumbar Spine 2 Or 3 View History: Low back pain Comparison: Radiographs February 2020 Findings: Moderate dextro scoliosis lumbar spine. Complete burst fracture of L1 with slight progressi ve height loss. Impression: Slightly progressive L1 burst fracture height loss.
== END 2020-04-09 10:01 | disposition home or self-care (01) ==
LOC: BICRAD 10:00
PROVIDERS: ATTEND Neurological Surgery
DX: M54.5 Low back pain (principal); S32.011A Stable burst fracture of first lumbar vertebra, initial encounter for closed fracture
CPT/HCPCS: 72100

== ENCOUNTER 2020-05-03 10:47 | Inpatient (IN) | payer MEDICARE, OTHER ==
[~2020-05-03 10:47] MED LIST: Dexamethasone 20 MG/5 ML VIAL ONE; Esmolol 100 MG/10 ML VIAL ONE; Glycopyrrolate 0.2 MG/ML 5 ML SYRINGE ONE; Lidocaine 1% PF 5 ML VIAL ONE; Ondansetron PF 4 MG/2 ML Vial ONE; PROPOFOL 200 MG/20 ML VIAL ONE; Rocuronium Bromide 10 MG/ML (10ML VIAL) ONE; Succinylcholine 200 MG/10 ml SYRINGE FS ONE
[2020-05-03 11:44] LABS: #Eosinphils 0.1 thou/uL (0.0-0.7); #Lymphocytes 0.6 thou/uL (1.20-3.40); #Monocytes 0.4 thou/uL (0.11-0.59); #Neutrophils 11.7 thou/uL (1.40-6.50); %Basophils 0.2 % (0.0-1.0); %Eosinophils 0.5 % (0.0-10.0); %Lymphocytes 4.5 % (21.0-51.0); %Monocytes 2.8 % (0.0-10.0); %Neutrophils 92.1 % (42.0-75.0); Hemoglobin 14.2 g/dL (12.0-16.0); Mean Corpuscular HGB CONC 33.5 g/dL (32.0-36.0); Mean Corpuscular Hemoglobin 31.1 pg (27.0-31.0); Mean Platelet Volume 8.5 fL (7.4-10.4); Platelet Count 145 thou/uL (130-400); Red Blood Cell (RBC) Count 4.56 mill/uL (4.20-5.40); White Blood Cell (WBC) Count 12.7 thou/uL (4.8-10.8)
[2020-05-03 12:14] LABS: ALT (SGPT) 22 U/L (8-55); AST (SGOT) 27 U/L (5-34); Albumin 3.9 g/dL (3.4-4.8); Alkaline Phosphatase 62 U/L (40-110); Anion Gap 16 mmol/L (10-20); BUN (Urea Nitrogen) 5 mg/dL (9.8-20.1); Calc. Creatinine Clearance 0 mL/min (70-130); Calcium 8.8 mg/dL (7.8-10.44); Carbon Dioxide 28 mmol/L (23-31); Chloride 102 mmol/L (98-107); Globulin 2.5 g/dL (2.4-3.5); Glucose 252 mg/dL (83-110); Potassium 3.9 mmol/L (3.5-5.1); Protein, Total 6.4 g/dL (6.0-8.3); Sodium 142 mmol/L (136-145)
[2020-05-03 12:33] LABS: Bacteria/HPF 3+ HPF (None Seen); Bilirubin Negative (Negative); Blood, Urine Negative (Negative); Clarity Clear (Clear); Glucose, Urine (Dipstick) 500 mg/dL (Negative); Ketone, Urine 20 mg/dL (Negative); Leukocyte 25 Leu/uL (Negative); Nitrite Negative (Negative); Protein, Urine (Dipstick) Negative (Neg-Trace); RBC/HPF 0-3 HPF (0-3); Specific Gravity, Urine 1.014 (1.002-1.036); Squamous Epithelial 0-3 HPF (0-3); Urobilinogen Normal mg/dL (Less than 2)
--- NOTE | 2020-05-03 12:48 | RAD ---
EXAM: XR Hip Rt 2-3 View PROVIDED CLINICAL HISTORY: Pain status post injury COMPARISON: None FINDINGS: Mildly displaced and impacted right femoral neck fracture with associated coxa vara. No additional fr acture is evident. Right hip joint space appears preserved. IMPRESSION: As above.
--- NOTE | 2020-05-03 12:48 | RAD ---
EXAM: XR Pelvis AP STANDARD PROVIDED CLINICAL HISTORY: Pain status post injury COMPARISON: 02/23/2020 FINDINGS: Right femoral neck fracture is better seen on concurrently performed right hip radiographs. Please se e that report. No additional fracture is evident. Hip joint spaces appear preserved. IMPRESSION: As above.
--- NOTE | 2020-05-03 12:49 | RAD ---
EXAM: Portable chest PROVIDED CLINICAL HISTORY: Fall COMPARISON: 03/06/2020 FINDINGS: Cardiac and mediastinal silhouette is within normal limits. No focal consolidation, pleural fluid or pneumothorax evident. Calcified granuloma right midlung zone, stable. IMPRESSION: No evidence for an acute cardiopulmonary process.
--- NOTE | 2020-05-03 13:22 | CT ---
CT BRAIN WITHOUT CONTRAST: HISTORY: Fall at home with head trauma. COMPARISON: 02/23/2020. TECHNIQUE: Multiple contiguous axial images were obtained in a CT of the brain without contrast. Sagittal and c oronal reformats were performed. FINDINGS: There are scattered hypodensities in the subcortical and periventricular white matter, likely seconda ry to small-vessel ischemic disease. No large confluent infarction is seen. There is no evidence of hydrocephalus, intracranial hemorrhage, or extraaxial fluid collection. There is soft tissue swelling in the right posterior scalp. The underlying calvarium is unremarkable . The visualized paranasal sinuses and mastoid air cells are well aerated. IMPRESSION: No evidence of acute intracranial abnormality. POS: AH
--- NOTE | 2020-05-03 13:23 | CT ---
CT CERVICAL SPINE WITHOUT CONTRAST: HISTORY: Fall with head trauma and neck pain. COMPARISON: 02/23/2020. TECHNIQUE: Multiple contiguous axial images were obtained in a CT of the cervical spine without contrast. Sagit july and coronal reformats were performed. FINDINGS: There are mild to moderate definitive changes in the cervical spine. The vertebral bodies demonstrat e normal height and alignment without acute fracture or subluxation. No prevertebral soft tissue swe lling is seen. The posterior facets are well aligned. Normal alignment of the skull base with the cervical spine is seen. IMPRESSION: No evidence of acute osseous abnormality of the cervical spine. POS: AH
[2020-05-03 14:51] LABS: SARS-CoV-2 NAA Rapid Test Not Detected (NotDetected)
[2020-05-03] MEDS ORDERED: Fentanyl 100 MCG/2 ML VIAL ONE (15:12)
--- NOTE | 2020-05-03 15:27 | HP ---
REQUEST PHYSICIAN: Dr. Boudreaux. ATTENDING SURGEON: Dr. Bey. CONSULTATIONS: Orthopedics, Dr. Gonzalez. HISTORY OF PRESENT ILLNESS: The patient is a 74-year-old woman, who presented to the emergency department after a ground level fall at home. She came in, was evaluated, examined, and noted to have a right proximal femur fracture, at which time we were asked to evaluate her for admission and obtain orthopedic consultation. The patient had been n.p.o. since last night, and after evaluation by Orthopedics, it was decided that she was able to go to the OR today. The patient reports that she did hit her head, but did not have any loss of consciousness. ALLERGIES: NONE. CURRENT MEDICATIONS: 1. Synthroid. 2. Pantoprazole. 3. Hydrochlorothiazide. 4. Clonazepam. 5. Telmisartan. 6. Desmopressin. 7. Aspirin. 8. Zanaflex. PAST MEDICAL HISTORY: Hypertension, hyperlipidemia, , and diabetes. PAST SURGICAL HISTORY: Hysterectomy, cholecystectomy. SOCIAL HISTORY: The patient lives at home with family. She denies drug or tobacco use, though she was a former smoker. She drinks alcohol occasionally. REVIEW OF SYSTEMS: A 10-point review of systems is negative except otherwise stated. PHYSICAL EXAMINATION: VITAL SIGNS: Blood pressure 174/75, heart rate 95, respirations 18, oxygen saturation 94% on room air, and temperature 98.4. GENERAL: The patient is resting comfortably in bed. She is awake, alert, and oriented x3. Corrigan Coma Scale is 15. HEENT: Head is normocephalic and atraumatic. Eyes, extraocular motions intact. PERRLA bilaterally. Ears are atraumatic without discharge. Nose is atraumatic without discharge. Oropharynx is clear. NECK: Nontender. Trachea is midline with no JVD. CHEST: Clear to auscultation with moderate inspiratory and expiratory effort. The patient is currently wearing a TLSO brace for a previous L1 burst fracture. HEART: Regular rate and rhythm. ABDOMEN: Soft, nontender with active bowel sounds. EXTREMITIES: Neurovascularly intact x4. The patient does have tenderness to palpation of the right hip consistent with her fracture. LABORATORY FINDINGS: White blood cell count 12.7, hemoglobin 14.2, hematocrit 42.4, and platelets 145. Sodium 142, potassium 3.9, chloride 102, CO2 of 28, BUN 5, creatinine 0.74, glucose 252. LFTs are unremarkable. Troponin is less than 0.010. Urinalysis positive for glucose, ketones, leukocyte esterase, 7 to 10 wbc's, and 3+ bacteria. COVID is pending. ASSESSMENT AND PLAN: 1. Status post ground level fall. 2. Right femoral neck fracture. 3. Recent L1 burst fracture, still being treated in TLSO brace. 4. History of diabetes, hypertension, hyperlipidemia, . 5. Uncomplicated urinary tract infection, present on admission. PLAN: Plan will be to continue n.p.o. status. Await COVID results and then likely to day stay into the operating room today. The patient was evaluated in the emergency department by Orthopedics. Postoperatively, we will do pain control, pulmonary toilet, gastritis and mechanical VTE prophylaxis, sliding scale insulin, and begin physical and occupational therapy postoperatively. The patient will also have placement started. As she had been to [facility] for her L1 burst fracture, she requested that she be able to go there for rehab. We will work with Case Management to facilitate this. The evaluation, examination, laboratory, and radiographic findings discussed with Dr. Bey prior to this dictation. Job ID: [id number]
[2020-05-03] MEDS ORDERED: HYDROmorphone 2 MG/ML VIAL ONE (15:53)
[2020-05-03] MEDS ORDERED: Ondansetron PF 4 MG/2 ML Vial IVP PRN (17:03)
[2020-05-03] MEDS ORDERED: Dextrose 50% Abboject 50 ML SYRINGE SLOW IVP PRN (17:03)
[2020-05-03] MEDS ORDERED: Morphine 2 MG/ML VIAL SLOW IVP PRN (17:03)
[2020-05-03] MEDS ORDERED: Ibuprofen 600 MG TAB PO PRN (17:03)
[2020-05-03] MEDS ORDERED: Insulin Regular 300 UNITS/3 ML VIAL SC PRN (17:03)
[2020-05-03] MEDS ORDERED: traMADol HCl 50 MG TAB PO PRN ×2 (17:03)
[2020-05-03] MEDS ORDERED: Cyclobenzaprine 10 MG TAB PO PRN (17:03)
[2020-05-03] MEDS ORDERED: Dextrose 5% in Water 1,000 ML IV PRN (17:03)
[2020-05-03] MEDS ORDERED: Ondansetron ODT 4 MG TAB PO PRN (17:03)
[2020-05-03] MEDS ORDERED: hydrALAZINE 20 MG/ML VIAL SLOW IVP PRN (17:03)
--- NOTE | 2020-05-03 17:29 | RAD ---
XR Hip Rt 1 View INDICATION: Right hip hemiarthroplasty; postop film COMPARISON: Right hip radiograph dated May 03, 2020 FINDINGS: Bones: No acute osseous abnormality. Bone mineralization appears within normal limits. Hip joint: There has been interval placement of a right hip endoprosthesis. Prosthetic components pro ject in expected position. SI joints and symphysis pubis: Radiographically normal. Intrapelvic contents: Visualized bowel gas pattern is within normal limits. Surrounding soft tissues: Radiographically normal. IMPRESSION: 1. Right hip endoprosthesis
--- NOTE | 2020-05-03 17:30 | RAD ---
AP view of the pelvis INDICATION: Right hip hemiarthroplasty COMPARISON: Prior exam dated October 01, 2020 FINDINGS: Bones: No acute fracture or subluxation is evident. Bone mineralization appears within normal limits. Hips: Since the comparison exam there is been interval placement of a right hip hemiarthroplasty. Lef t hip demonstrates mild degenerative change. SI joints and symphysis pubis: Normal appearing. Intrapelvic contents: Within normal limits. IMPRESSION: Right hip hemiarthroplasty.
[2020-05-03 18:23] VITALS: BMI 28.1
[2020-05-03] MEDS: Sodium Chloride 0.9% 1,000 ML IV SCH (18:50)
[2020-05-03] MEDS: Acetaminophen 325 MG TAB PO SCH ×2 (18:50→23:09)
[2020-05-03] MEDS: cefTRIAXone\\ROCEPHIN 1 GM in Sodium Chloride 0.9% 100 ML IVPB SCH (18:51)
--- NOTE | 2020-05-03 20:50 | OP ---
DATE OF PROCEDURE: 05/03/2020 PROCEDURE PERFORMED: Right hip bipolar hemiarthroplasty. PREOPERATIVE DIAGNOSIS: Right displaced femoral neck fracture. POSTOPERATIVE DIAGNOSIS: Right displaced femoral neck fracture. COMPLICATIONS: None. ESTIMATED BLOOD LOSS: 150 mL. FURNACE ATTENDANT: Clari Amaya PA-C. IMPLANTS: DePuy Basic press-fit Ida stem size 5, size +5, and 47 mm femoral head with bipolar shell. INDICATIONS: Ms. Neely is a 74-year-old female who has fallen and fractured her right femoral neck. She has been indicated for hemiarthroplasty of the hip to restore the ability to mobilize and prevent complications of prolonged bedrest. Risks have been reviewed in detail. She elected to proceed with the operation. DESCRIPTION OF PROCEDURE: Ms. Neely was identified in the preoperative holding area. Her correct extremity was marked. She was carried to the operating room. She was positioned supine. General anesthesia was induced. A multidisciplinary time-out was performed. The right lower extremity was prepped and draped in sterile fashion. We began the procedure with a posterior approach to the hip. We dissected down through the subcutaneous tissues to the fascia, which was opened. We then exposed the underlying short external rotators of the hip. At this point, we were able to divide these from the proximal femur, leaving the piriformis intact. Next, we performed a capsulotomy. We then removed the broken femoral head and neck components. We cleared the acetabulum of bony fragments. Next, we thoroughly irrigated with copious lavage. At this point, we prepared the femoral canal. We entered the canal, followed by lateralizing. Next, we reamed and broached up to a size 5. Once we had a good fit on the size 5 broach, we trialed. A +5 length was appropriate. The patient had good range of motion and stability. We dislocated the hip and removed the trial components. We then impacted our final components and reduced the hip once more. Again, we tested stability and again the patient was stable. The leg length was equal. Next, we closed the short external rotators and capsule through drill holes with #5 Ethibond suture. We then closed in layers including #2 Vicryl for the fascia. A sterile dressing was applied, and the patient was taken to the recovery room in good condition. The assistant professor of marine biology surgeon was responsible for positioning the patient, preparing the injured extremity, applying the tourniquet, and assisting in preparation for surgery. The assistant professor of marine biology was instrumental in reducing the injured limb by applying traction and reduction maneuvers as well as holding retractors and reduction tools. The assistant professor of marine biology also was instrumental in assisting in exposure throughout the operation using appropriate retractors. The assistant professor of marine biology participated in closure of the operative site as well as dressing application and splint application. Job ID: [id number]
[2020-05-03] MEDS ORDERED: Famotidine 20 MG TAB PO SCH (21:00)
[2020-05-03] MEDS: CEFAZOLIN 2 GM in Premix Bag 1 BAG IVPB SCH (21:22)
[2020-05-03] MEDS: Senokot S 8.6-50 MG TAB PO SCH (21:22)
[2020-05-04] MEDS: Sodium Chloride 0.9% 1,000 ML IV SCH (05:28)
[2020-05-04] MEDS: Acetaminophen 325 MG TAB PO SCH ×3 (05:29→17:58)
[2020-05-04] MEDS: CEFAZOLIN 2 GM in Premix Bag 1 BAG IVPB SCH (05:29)
[2020-05-04] MEDS: Insulin Regular 300 UNITS/3 ML VIAL SC PRN ×3 (05:36→17:59)
[2020-05-04 05:59] LABS: #Lymphocytes 0.8 thou/uL (1.20-3.40); #Monocytes 0.6 thou/uL (0.11-0.59); #Neutrophils 8.4 thou/uL (1.40-6.50); %Basophils 0.1 % (0.0-1.0); %Eosinophils 0.3 % (0.0-10.0); %Monocytes 6.5 % (0.0-10.0); %Neutrophils 85.1 % (42.0-75.0); Mean Corpuscular HGB CONC 32.7 g/dL (32.0-36.0); Mean Corpuscular Volume 91.7 fL (78.0-98.0); Mean Platelet Volume 8.8 fL (7.4-10.4); Platelet Count 156 thou/uL (130-400); RBC Distribution Width 12.9 % (11.5-14.5); Red Blood Cell (RBC) Count 3.68 mill/uL (4.20-5.40); White Blood Cell (WBC) Count 9.9 thou/uL (4.8-10.8)
[2020-05-04 06:10] LABS: Anion Gap 17 mmol/L (10-20); BUN (Urea Nitrogen) 10 mg/dL (9.8-20.1); Calc. Creatinine Clearance 90 mL/min (70-130); Calcium 7.8 mg/dL (7.8-10.44); Carbon Dioxide 22 mmol/L (23-31); Chloride 100 mmol/L (98-107); Glucose 276 mg/dL (83-110); Magnesium 1.6 mg/dL (1.6-2.6); Phosphorus 4.1 mg/dL (2.3-4.7); Potassium 3.5 mmol/L (3.5-5.1); Sodium 135 mmol/L (136-145)
[2020-05-04] MEDS ORDERED: Magnesium 2 GM/50 ML 2 GM in Premix Bag 1 BAG IVPB SCH (08:45)
[2020-05-04] MEDS ORDERED: Potassium Chloride 20 MEQ TAB PO SCH (08:45)
[2020-05-04] MEDS: clonazePAM 0.5 MG TAB PO SCH ×2 (10:10→20:31)
[2020-05-04] MEDS: Senokot S 8.6-50 MG TAB PO SCH ×2 (10:10→20:31)
[2020-05-04] MEDS: Polyethylene Glycol 3350 17 GM Packet PO SCH (10:10)
[2020-05-04] MEDS: Enoxaparin Sodium 40 MG/0.4 ML SYRINGE SC SCH (10:10)
[2020-05-04] MEDS: traMADol HCl 50 MG TAB PO SCH ×2 (11:29→17:57)
--- NOTE | 2020-05-04 14:11 | PRG ---
DATE OF SERVICE: 05/04/2020 The patient was seen this morning with Dr. Marcellus Bey. SUBJECTIVE: The patient is postop day #1, status post ORIF of right hip fracture. Of note, she had a recent admission here for fall and is currently in TLSO brace for spinal fractures. The patient's pain is generally under control. She has no overnight events to report. Remains hemodynamically stable. Tolerating diet. OBJECTIVE: VITAL SIGNS: Temperature is 98.1, blood pressure 120/74, heart rate is 88, breathing 16 times per minute. She is 94% on room air. GENERAL: This is a 74-year-old female, sitting up in a TLSO brace. No acute distress. HEENT: Normocephalic, atraumatic. RESPIRATORY: Equal rise and fall. No respiratory distress. CARDIOVASCULAR: Strong pulses. ABDOMEN: Deferred secondary to TLSO brace, but no reported nausea or vomiting. MUSCULOSKELETAL: She has the surgical incision site that is dry and clean. She has good sensation in all extremities. NEUROLOGIC: Alert and oriented to person, place, time, and event. GCS is 15. SKIN: Warm and dry. LABORATORY DATA: From today, a white blood cell count 9.9, platelets are 156, hemoglobin and hematocrit of 11.0 and 33.8 respectively. Sodium is 135, potassium 3.5, chloride is 100, CO2 is 22, BUN is 10, creatinine 0.71, glucose is 276, calcium is 7.8, phosphorus is 4.1, magnesium is 1.6. ASSESSMENT: 1. Ground level fall. 2. Right femoral neck fracture, status post open reduction and internal fixation. 3. Recent L1 burst fractures, still in TLSO. 4. History of diabetes, hypertension, hyperlipidemia. 5. Acute traumatic pain. 6. Electrolyte abnormalities. 7. Knee replacement. 8. Bacteriuria/urinary tract infection. PLAN: 1. Continue current regimen. 2. PT/OT has been ordered. 3. Plan is to hopefully go home with family. 4. Orthopedic has been consulted. I appreciate their recommendations. 5. I have increased to moderate dose sliding scale insulin like we will add a touch of Levemir tonight. 6. Continue dofwa-yx-bule glucose a.c. and at bedtime. 7. Continue ceftriaxone. 8. Start DVT prophylaxis. 9. Continue TLSO brace. 10. Electrolyte replacement protocol. 11. We will repeat labs in the morning. 12. Updated the patient at the bedside. No family to update time of our visit. Answered all questions. The patient has been coordinated with bedside RN. Job ID: [id number]
[2020-05-04] MEDS: cefTRIAXone\\ROCEPHIN 1 GM in Sodium Chloride 0.9% 100 ML IVPB SCH (17:56)
[2020-05-04] MEDS ORDERED: Aspirin 81 mg Enteric Coated Tablet PO SCH (21:00)
[2020-05-04] MEDS ORDERED: Atorvastatin Calcium 20 MG TAB PO SCH (21:00)
[2020-05-04] MEDS ORDERED: Insulin Glargine 5 UNITS in Pre-Filled Syringe 1 EACH SC SCH (21:00)
[2020-05-05] MEDS: traMADol HCl 50 MG TAB PO SCH ×3 (00:52→12:50)
[2020-05-05] MEDS: Acetaminophen 325 MG TAB PO SCH ×3 (00:52→12:50)
[2020-05-05] MEDS ORDERED: HumaLOG 300 UNITS/3 ML VIAL SC PRN (02:10)
[2020-05-05] MEDS ORDERED: Insulin Regular 300 UNITS/3 ML VIAL SC PRN (02:10)
[2020-05-05] MEDS ORDERED: Levothyroxine Sodium 100 MCG TAB PO SCH (06:00)
[2020-05-05 06:03] LABS: #Eosinphils 0.3 thou/uL (0.0-0.7); #Lymphocytes 1.2 thou/uL (1.20-3.40); #Monocytes 0.7 thou/uL (0.11-0.59); #Neutrophils 7.1 thou/uL (1.40-6.50); %Basophils 0.3 % (0.0-1.0); %Eosinophils 3.7 % (0.0-10.0); %Lymphocytes 12.6 % (21.0-51.0); %Monocytes 7.4 % (0.0-10.0); Hemoglobin 10.2 g/dL (12.0-16.0); Mean Corpuscular Hemoglobin 30.3 pg (27.0-31.0); Mean Corpuscular Volume 91.9 fL (78.0-98.0); Mean Platelet Volume 8.6 fL (7.4-10.4); Platelet Count 128 thou/uL (130-400); Red Blood Cell (RBC) Count 3.35 mill/uL (4.20-5.40); White Blood Cell (WBC) Count 9.3 thou/uL (4.8-10.8)
[2020-05-05 06:23] LABS: Anion Gap 14 mmol/L (10-20); BUN (Urea Nitrogen) 7 mg/dL (9.8-20.1); Calc. Creatinine Clearance 95 mL/min (70-130); Calcium 7.9 mg/dL (7.8-10.44); Carbon Dioxide 25 mmol/L (23-31); Chloride 100 mmol/L (98-107); Glucose 289 mg/dL (83-110); Magnesium 1.9 mg/dL (1.6-2.6); Phosphorus 2.2 mg/dL (2.3-4.7); Potassium 3.8 mmol/L (3.5-5.1); Sodium 135 mmol/L (136-145)
[2020-05-05] MEDS ORDERED: Insulin Glargine 5 UNITS in Pre-Filled Syringe 1 EACH SC SCH (09:00)
[2020-05-05] MEDS ORDERED: Magnesium 2 GM/50 ML 2 GM in Premix Bag 1 BAG IVPB SCH (09:15)
[2020-05-05] MEDS ORDERED: PHOS-NAK 1 PKT PACK PO SCH (09:15)
[2020-05-05] MEDS ORDERED: Magnesium Sulfate 2 GM in Sodium Chloride 0.9% 100 ML IVPB SCH (09:15)
[2020-05-05] MEDS: clonazePAM 0.5 MG TAB PO SCH (09:47)
[2020-05-05] MEDS: Senokot S 8.6-50 MG TAB PO SCH (09:47)
[2020-05-05] MEDS: Polyethylene Glycol 3350 17 GM Packet PO SCH (09:48)
[2020-05-05] MEDS: Enoxaparin Sodium 40 MG/0.4 ML SYRINGE SC SCH (09:48)
--- NOTE | 2020-05-05 10:12 | PRG ---
DATE OF SERVICE: 05/05/2020 SUBJECTIVE: Emelina is a 74-year-old female, postop day 2 from a right hip hemiarthroplasty for fracture of the femoral neck. She is doing relatively well. She ambulated 36 feet according to therapy notes. She had a little bit of nausea on postop day #1, this is slowly getting better and she has been sleeping a bit more than usual. Otherwise, her pain is much better. OBJECTIVE: VITAL SIGNS: Temperature 98.3, pulse 100, respiratory rate 16, O2 saturation 92% on room air, and blood pressure 128/76. GENERAL: She is alert and oriented to person, place, time, and situation. Responsive, appropriate with examiner, pleasant and interactive. EXTREMITIES: Incision is clean. No strike through. No erythema. No malrotation or shortening of the right lower extremity. She is neurovascularly intact. LABORATORY DATA: Hemoglobin and hematocrit 10.2 and 30.8 and stable. IMPRESSION: This is a 74-year-old female on postop day 2: 1. Right hip hemiarthroplasty for fracture. 2. Asymptomatic anemia. PLAN: Continue current care. DISPOSITION: Per Trauma Team. Job ID: [id number]
--- NOTE | 2020-05-05 13:48 | DIS ---
DATE OF ADMISSION: 05/03/2020 DATE OF DISCHARGE: 05/05/2020 DISCHARGING PHYSICIAN: Jv Hong MD CONSULTING PHYSICIAN: Dr. Tc Gonzalez with Orthopedics. ADMITTING DIAGNOSES: 1. Pain, ground level fall. 2. Right femoral neck fracture. 3. Recent L1 burst fracture, in TLSO brace. 4. History of diabetes, hypertension, hyperlipidemia. DISCHARGE DIAGNOSES: 1. Ground level fall. 2. Right femoral neck fracture, status post open reduction and internal fixation. 3. Recent L1 burst fracture, in TLSO. 4. History of diabetes, hypertension, hyperlipidemia. HOSPITAL COURSE: The patient was admitted to the emergency department status post fall. She was found to have the right femoral neck fracture. Orthopedics were consulted. She was taken to the OR, had ORIF of the same, tolerated the procedure well, was admitted to the surgery nguyen. The patient remained in TLSO brace. Pain was under control. She is working with PT. She has been accepted to [facility], which is her request. The patient remained hemodynamically stable. Her blood sugar was elevated and titration of her insulin is ongoing, this will need to be continued at the outside facility. On the date of discharge, the patient is tolerating a diet spontaneously. She is voiding, and states that she is ready to go and she has been accepted for the same. PHYSICAL EXAMINATION: On the date of discharge, VITAL SIGNS: Temperature is 98.3, blood pressure 131/74, heart rate is 94, breathing 16 times per minute, and 92% on room air. GENERAL: A 74-year-old female, sitting up, in no acute distress. Nontoxic appearing. HEENT: Normocephalic, atraumatic. RESPIRATORY: Equal rise and fall. No respiratory distress. CARDIOVASCULAR: Strong pulses. ABDOMEN: Deferred secondary to TLSO brace. MUSCULOSKELETAL: She is in TLSO brace. She has surgical incision noted to the right hip, dry and clean. She moves her extremities well. NEUROLOGIC: Alert and oriented to person, place, time, and event. GCS is 15. PSYCHIATRIC: Normal mood and affect. LABORATORY DATA: From today, white blood cell count of 9.3, platelets hemoglobin and hematocrit 10.2 and 30.8 respectively. Sodium is 135, potassium 3.8, chloride is 100, CO2 is 25, creatinine 0.67, glucose 276, magnesium is 1.9, and phosphorus of 2.2. DISCHARGE PLAN: 1. To [facility]. 2. Follow up with Dr. Gonzalez in 2 weeks. 3. Follow up with PCP for glucose control. 4. Follow up with Neurosurgery for TLSO brace and spinal fracture. DISCHARGE MEDICATIONS: 1. Tylenol 650 every 6 hours. 2. DuoNebs as needed. 3. Aspirin 81 mg nightly. 4. Atorvastatin 20 mg. 5. Clonazepam 0.5 mg b.i.d. 6. Enoxaparin 40 mg. 7. Ibuprofen every 8 hours. 8. Insulin sliding scale as well as Lantus as needed per their recommendations. 9. Levothyroxine 100 mcg daily. 10. Zofran as needed. 11. Bowel regimen as needed. 12. Protonix 40 mg daily. 13. Tramadol 50 mg every 6 hours. I have answered all questions of the patient and coordinated with Case Management and bedside RN. Plan can be updated as needed. Job ID: [id number]
[2020-05-05 15:38] VITALS: BP 162/85; TEMP 99.3
== END 2020-05-05 16:55 | DRG 522 ==
LOC: ERS 10:47 → SDC 13:04 → SURG A 17:03
PROVIDERS: ADMIT Surgery; ATTEND Surgery
PROC: 0SRR0JA Replacement of Right Hip Joint, Femoral Surface with Synthetic Substitute, Uncemented, Open Approach (ICD-10-PCS; principal; 2020-05-03)
DX: S72.001A Fracture of unspecified part of neck of right femur, initial encounter for closed fracture (principal); S32.011A Stable burst fracture of first lumbar vertebra, initial encounter for closed fracture; N39.0 Urinary tract infection, site not specified; I10 Essential (primary) hypertension; E11.9 Type 2 diabetes mellitus without complications; E78.00 Pure hypercholesterolemia, unspecified; W18.30XA Fall on same level, unspecified, initial encounter; Z20.822 Contact with and (suspected) exposure to COVID-19; E87.8 Other disorders of electrolyte and fluid balance, not elsewhere classified; Z90.49 Acquired absence of other specified parts of digestive tract; Z90.710 Acquired absence of both cervix and uterus; Z87.891 Personal history of nicotine dependence; Z79.890 Hormone replacement therapy; Y93.9 Activity, unspecified; Y92.009 Unspecified place in unspecified non-institutional (private) residence as the place of occurrence of the external cause
CPT/HCPCS: 0240U; 36415; 36416; 51701; 70450; 71045; 72125; 72170; 80048; 80053; 81003; 81015; 83735; 84100; 84484; 85025; 93005; 96360; C1776; J0690; J0696; J1100; J1170; J1650; J1815; J2405; J2704; J3010; J3475; J3490

== ENCOUNTER 2020-06-06 12:59 | Outpatient (CLI) | payer MEDICARE, OTHER ==
--- NOTE | 2020-06-06 13:29 | RAD ---
EXAM: XR Lumbar Spine 2 Or 3 View PROVIDED CLINICAL HISTORY: Fracture spinous process thoracic vertebra. L1 vertebral body fracture. COMPARISON: 05/16/2020 FINDINGS: Right convex rotoscoliosis thoracolumbar spine is seen. Previously seen burst fracture L1 vertebral b tierra is again seen with greater than 75% loss of height. Degree of height loss is similar to the prior exam. Remaining vertebral body heights appear to be within normal limits. No additional fractur e is seen, and there is no subluxation. There is exaggerated kyphosis at thoracolumbar junction due to L1 vertebral body burst fracture. Osteopenia is present. Artifact related to patient's brace is se en. Surgical clips overlie the right upper quadrant. Vascular calcifications overlie the left upper quadrant. IMPRESSION: 1. Stable degree of height loss involving L1 vertebral body burst fracture with exaggerated kyphosis thoracolumbar spine this level. 2. Right convex rotoscoliosis thoracolumbar spine.
== END 2020-06-06 13:00 | disposition home or self-care (01) ==
LOC: BICRAD 12:59
PROVIDERS: ATTEND Neurological Surgery
DX: S22.008A Other fracture of unspecified thoracic vertebra, initial encounter for closed fracture (principal); S32.011A Stable burst fracture of first lumbar vertebra, initial encounter for closed fracture; M41.9 Scoliosis, unspecified
CPT/HCPCS: 72100

== ENCOUNTER 2020-06-08 11:59 | Inpatient (IN) | payer MEDICARE, OTHER ==
--- NOTE | 2020-06-08 13:57 | RAD ---
XR Wrist 3 Lt View STANDARD: 06/08/2020 1:25 PM CLINICAL INDICATION: Fall with left wrist pain COMPARISON: None. FINDINGS: Bones: There is diffuse osteopenia. No displaced fracture is evident. Joints: Joints space is preserved.. Soft Tissue: Normal.. IMPRESSION: No acute osseous abnormality..
[2020-06-08 16:42] LABS: #Basophils 0.1 thou/uL (0.0-0.2); #Eosinphils 0.1 thou/uL (0.0-0.7); #Lymphocytes 1.3 thou/uL (1.20-3.40); #Monocytes 0.4 thou/uL (0.11-0.59); #Neutrophils 5.4 thou/uL (1.40-6.50); %Basophils 1.2 % (0.0-1.0); %Lymphocytes 18.4 % (21.0-51.0); %Monocytes 5.9 % (0.0-10.0); %Neutrophils 73.4 % (42.0-75.0); Hemoglobin 12.4 g/dL (12.0-16.0); Mean Corpuscular HGB CONC 33.2 g/dL (32.0-36.0); Mean Corpuscular Hemoglobin 31.6 pg (27.0-31.0); Mean Corpuscular Volume 95.2 fL (78.0-98.0); Mean Platelet Volume 8.7 fL (7.4-10.4); Platelet Count 179 thou/uL (130-400); RBC Distribution Width 12.7 % (11.5-14.5); Red Blood Cell (RBC) Count 3.94 mill/uL (4.20-5.40); White Blood Cell (WBC) Count 7.3 thou/uL (4.8-10.8)
--- NOTE | 2020-06-08 16:49 | CT ---
Head CT without contrast: 06/08/2020 COMPARISON: 05/11/2020 HISTORY: Multiple recent falls, pain TECHNIQUE: Axial CT imaging at 3 mm intervals from vertex through skull base without contrast. Rivera l and sagittal reformatted imaging obtained FINDINGS: There is periventricular, deep, and subcortical white matter hypodensity, evidence of small vessel di sease. There is stable prominence of the ventricular system, especially the lateral ventricles and the third ventricle, similar when compared to the 05/11/2020 exam. There is a mild degree of cerebral volume loss. There is no intracranial hemorrhage, midline shift, or mass affect. The visualized paranasal sinuses/mastoid air cells appear well-aerated. There is no displaced calvari al fracture. IMPRESSION:Prominence of the lateral ventricles. Mild cerebral volume loss and small vessel disease. Given the provided history of multiple falls, perhaps the ventricular prominence could be related to normal pressure hydrocephalus. Clinical correlation is suggested.
--- NOTE | 2020-06-08 17:00 | RAD ---
Right hip 2 views: 06/08/2020 COMPARISON: None HISTORY: Fall, recent hip arthroplasty FINDINGS: There is a right hip arthroplasty. No evidence for hardware failure. No acute fracture or d islocation. IMPRESSION: Right hip arthroplasty with no acute fracture or dislocation.
--- NOTE | 2020-06-08 17:00 | RAD ---
Exam: XR Knee Rt 4 View STANDARD HISTORY: Right knee pain after a fall. COMPARISON: None FINDINGS: There are 2 cannulated screws transfixing the patella. No hardware complication is seen. No fracture or dislocation is seen. Osteopenia is present. No other osseous abnormalities. A calcification is seen adjacent to the lateral femoral condyle likely due to prior injury. IMPRESSION: 1. No acute osseous abnormality. 2. Osteopenia. 3. Postoperative changes patella.
[2020-06-08 17:02] LABS: ALT (SGPT) 10 U/L (8-55); AST (SGOT) 13 U/L (5-34); Alkaline Phosphatase 79 U/L (40-110); Anion Gap 16 mmol/L (10-20); BUN (Urea Nitrogen) 13 mg/dL (9.8-20.1); Bilirubin, Total 0.6 mg/dL (0.2-1.2); Calc. Creatinine Clearance 0 mL/min (70-130); Calcium 8.9 mg/dL (7.8-10.44); Carbon Dioxide 25 mmol/L (23-31); Chloride 101 mmol/L (98-107); Globulin 2.9 g/dL (2.4-3.5); Glucose 205 mg/dL (83-110); Protein, Total 6.9 g/dL (5.8-8.1); Sodium 138 mmol/L (136-145)
[2020-06-08] MEDS ORDERED: Ondansetron PF 4 MG/2 ML Vial IVP PRN (22:30)
[2020-06-08] MEDS ORDERED: Acetaminophen 325 MG TAB PO PRN (22:30)
[2020-06-08] MEDS ORDERED: Ondansetron ODT 4 MG TAB SL PRN (22:30)
[2020-06-08 22:56] VITALS: BMI 26.7
[2020-06-09] MEDS ORDERED: Ondansetron PF 4 MG/2 ML Vial IVP PRN (02:03)
[2020-06-09] MEDS ORDERED: hydrALAZINE 20 MG/ML VIAL SLOW IVP PRN (02:03)
[2020-06-09] MEDS ORDERED: Promethazine HCl 12.5 MG in Sodium Chloride 0.9% 50 ML IVPB PRN (02:03)
[2020-06-09] MEDS ORDERED: Guaifenesin DM 100-10/5 ML UDCUP PO PRN (02:03)
[2020-06-09] MEDS ORDERED: cloNIDine 0.1 MG TAB PO PRN (02:03)
[2020-06-09] MEDS ORDERED: Morphine 2 MG/ML VIAL SLOW IVP PRN (02:03)
[2020-06-09] MEDS ORDERED: HYDROcodone/Acetaminophen 5/325 mg Tablet PO PRN (02:03)
[2020-06-09] MEDS ORDERED: Labetalol HCl 100 MG/20 ML VIAL SLOW IVP PRN (02:03)
[2020-06-09] MEDS ORDERED: Electrolyte Replacement Protocol 1 EACH FS SCH (02:15)
[2020-06-09] MEDS ORDERED: Dextrose 5% in Water 1,000 ML IV PRN (02:18)
[2020-06-09] MEDS ORDERED: Dextrose 50% Abboject 50 ML SYRINGE SLOW IVP PRN (02:18)
--- NOTE | 2020-06-09 02:29 | PDOC.HHP ---
Hospitalist HPI Fall History of Present Illness: Patient is a 74 year old female with PMH HTN, HLD, vertebral disk disease, DM who presents to ED after falling at home. Patient reports many such falls, she fell yesterday and has had admission last month for similar fall where she broke R femur and had to have surgery, also had L1 burst fracture. She reports that she has disk disease and sees Dr Saini of neurosurgery in clinic. She reports they have discussed surgery and there were no current plans for him to operate. She has been to rehab twice for this but still continues to fall. She denies dizziness or LOC when she falls, and describes what sounds like mechanical fall/tripping. no chest pain/shortness of breath/palpitations or any other prodrome. she has good glasses and eyesight. in chart, last MRI was in february 2020 and revealed acute birst fracture of L1 vertebra, high grade DJD L5-S1.. she breifly had bowel and bladder incontinence for a day or two a few weeks ago but it resolved rapidly. no saddle anesthesia. CT head concerning for possible hydrocephalus. patient to be admitted for conitnued falls in setting of known spinal cord pathology. Allergies/Adverse Reactions: Allergy/AdvReac Type Severity Reaction Status Date / Time latex Allergy Intermediate Hives Verified 06/08/20 23:00 Home Medications: Medication Instructions Recorded Confirmed Type Aspirin [Ecotrin Low Strength] 81 mg PO HS 03/06/20 06/09/20 History Levothyroxine Sodium 100 mcg PO DAILY 03/06/20 06/09/20 History Pantoprazole [Protonix] 40 mg PO DAILY 03/06/20 06/09/20 History Simvastatin 40 mg PO HS 03/06/20 06/09/20 History clonazePAM [Klonopin] 0.5 mg PO BID 03/06/20 06/09/20 History Amlodipine [Norvasc] 5 mg PO DAILY 06/09/20 06/09/20 History Dulaglutide [Trulicity] 06/09/20 History Escitalopram Oxalate 10 mg PO DAILY 06/09/20 06/09/20 History Insulin Aspart [Novolog] units SC 06/09/20 History Insulin Degludec [Tresiba units SC 06/09/20 History Flextouch U-100] Losartan Potassium 100 mg PO DAILY 06/09/20 06/09/20 History Oxybutynin Chloride [Oxybutynin 15 mg PO DAILY 06/09/20 06/09/20 History Chloride ER] Propranolol HCl 20 mg PO TID 06/09/20 06/09/20 History Past History: PMH: HTN, HLD, DM PSH: hip repair, hysterectomy, cholecystectomy social history: no drugs, rare alcohol use, former smoker. family history: no relevant family history Hospitalist HPI ROS Constitutional: denies: fever, chills, sweats, weakness, malaise, other Eyes: denies: pain, vision change, conjunctivae inflammation, eyelid infl ammation, redness, other ENT: denies: ear pain, ear discharge, nose pain, nose discharge, nose congestion, mouth pain, mouth swelling, throat pain, throat swelling, other Respiratory: denies: cough, dry, shortness of breath, hemoptysis, SOB with exce rtion, pleuritic pain, sputum, wheezing, other Cardiovascular: denies: chest pain, palpitations, orthopnea, paroxysmal noc. dyspnea, edema, light headedness, other Gastrointestinal: denies: nausea, vomiting, abdominal pain, diarrhea, constipation, melena, hematochezia, other Genitourinary: denies: dysuria, frequency, incontinence, hematuria, retention, other Musculoskeletal: denies: neck pain, shoulder pain, arm pain, back pain, hand pain, leg pain, foot pain, other Skin: denies: rash, lesions, tereza, bruising, other Neurological: reports: other (falls). denies: weakness, numbness, incoordination, change in speech, confusion, seizures All other systems reviewed; all pertinent +/- noted in HPI/Subj Hospitalist Exam Vitals: Vital Signs (12 hours) Temp Pulse Resp BP Pulse Ox 06/08/20 22:47 97.9 F 59 L 18 145/74 H 97 Weight Weight 171 lb General Appearance: NAD, awake alert Eye: PERRL, anicteric sclera ENT: normocephalic atraumatic, no oropharyngeal lesions, moist mucosa Neck: supple, symmetric, no JVD, no thyromegaly, no lymphadenopathy, no carotid bruit Heart: RRR, no murmur, no gallops, no rubs, normal peripheral pulses Respiratory: CTAB, no wheezes, no rales, no ronchi, normal chest expansion, no tachypnea, normal percussion Gastrointestinal: soft, non-tender, non-distended, normal bowel sounds, no palpable masses, no hepatomegaly, no splenomegaly, no bruit Extremities: no cyanosis, no clubbing, no edema Skin: normal turgor, no lesions, no rashes Neurological: cranial nerve grossly intact, normal sensation to touch, no weakness, no focal deficits, no new deficit Musculoskeletal: normal tone, normal strength, no muscle wasting Psychiatric: normal affect, normal behavior, A&O x 3 Hospitalist Results Result Diagrams: 06/08/20 16:30 06/08/20 16:30 Lab results: Laboratory Last Values WBC 7.3 thou/uL (4.8-10.8) 06/08/20 16: RBC 3.94 mill/uL (4.20-5.40) L 06/08/20 16: Hgb 12.4 g/dL (12.0-16.0) 06/08/20: Hct 37.4 % (36.0-47.0) 06/08/20 16: MCV 95.2 fL (78.0-98.0) 06/08/20 16: MCH 31.6 pg (27.0-31.0) H 06/08/20 16: MCHC 33.2 g/dL (32.0-36.0) 06/08/20 16: RDW 12.7 % (11.5-14.5) 06/08/20 16: Plt Count 179 thou/uL (130-400) 06/08/20 16: MPV 8.7 fL (7.4-10.4) 06/08/20 16: Neutrophils % 73.4 % (42.0-75.0) 06/08/20 16: Lymphocytes % 18.4 % (21.0-51.0) L 06/08/20 16: Monocytes % 5.9 % (0.0-10.0) 06/08/20 16: Eosinophils % 1.0 % (0.0-10.0) 06/08/20 16: Basophils % 1.2 % (0.0-1.0) H 06/08/20 16: Neutrophils # 5.4 thou/uL (1.40-6.50) 06/08/20 16:30 Lymphocytes # 1.3 thou/uL (1.20-3.40) 06/08/20 16:30 Monocytes # 0.4 thou/uL (0.11-0.59) 06/08/20 16:30 Eosinophils # 0.1 thou/uL (0.0-0.7) 06/08/20 16:30 Basophils # 0.1 thou/uL (0.0-0.2) 06/08/20 16:30 Sodium 138 mmol/L (136-145) 06/08/20 16:30 Potassium 4.0 mmol/L (3.5-5.1) 06/08/20 16:30 Chloride 101 mmol/L (98-107) 06/08/20 16:30 Carbon Dioxide 25 mmol/L (23-31) 06/08/20 16:30 Anion Gap 16 mmol/L (10-20) 06/08/20 16:30 BUN 13 mg/dL (9.8-20.1) 06/08/20 16:30 Creatinine 0.77 mg/dL (0.6-1.1) 06/08/20 16:30 Estimated GFR (MDRD) 73 06/08/20 16:30 Glucose 205 mg/dL (83-110) H 06/08/20 16:30 POC Glucose 156 mg/dL (70-100) H 06/08/20 22:44 Calcium 8.9 mg/dL (7.8-10.44) 06/08/20 16:30 Total Bilirubin 0.6 mg/dL (0.2-1.2) 06/08/20 16:30 AST 13 U/L (5-34) 06/08/20 16:30 ALT 10 U/L (8-55) 06/08/20 16:30 Alkaline Phosphatase 79 U/L (40-110) 06/08/20 16:30 Troponin I 0.014 ng/mL (< 0.028) 06/08/20 16:30 Serum Total Protein 6.9 g/dL (5.8-8.1) 06/08/20 16:30 Albumin 4.0 g/dL (3.4-4.8) 06/08/20 16:30 Globulin 2.9 g/dL (2.4-3.5) 06/08/20 16:30 Albumin/Globulin Ratio 1.4 g/dL (1.2-2.2) 06/08/20 16:30 Additional comment: labs, old MRI spine report, imaigng reports from this admission reviewed. Hospitalist H&P A/P Plan: Patient is a 74 year old female with PMH HTN, HLD, vertebral disk disease, DM who presents to ED after falling at home. 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 She sees Dr Saini of neurosurgery in clinic, however [facility] Saini is on vacation for a month. She reports they have discussed surgery and there were no current plans for him to operate. She has been to rehab twice for this but still continues to fall. She denies dizziness or LOC when she falls, and describes what sounds like mechan ical fall/tripping. no chest pain/shortness of breath/palpitations or any other prodrome. she has good glasses and eyesight. in chart, last MRI was in february 2020 and revealed acute birst fracture of L1 vertebra, high grade DJD L5-S1 pathology. she breifly had bowel and bladder incontinence for a day or two a few weeks ago but it resolved rapidly. no saddle anesthesia. CT head concerning for possible hydrocephalus. patient to be admitted for continued falls in setting of known spinal cord pathology. - admit to floor - consult neurosur - for repeated falls, pt/ot consulted and also hold oxybutinin and d/c norvasc and konopin from home med list - check orthostatics # T2DM - unsure what dose of insulin she takes, start SSI and hold PO DM # HLD medications # HTN - reduce meds as discussed above., PRNs ordered # HLD - continue statin DVT ppx SI ppc - no blood thinners
[2020-06-09] MEDS: Levothyroxine Sodium 100 MCG TAB PO SCH (05:20)
[2020-06-09 06:39] LABS: #Eosinphils 0.2 thou/uL (0.0-0.7); #Lymphocytes 1.8 thou/uL (1.20-3.40); #Monocytes 0.6 thou/uL (0.11-0.59); #Neutrophils 4.1 thou/uL (1.40-6.50); %Basophils 0.5 % (0.0-1.0); %Lymphocytes 26.4 % (21.0-51.0); %Monocytes 9.1 % (0.0-10.0); %Neutrophils 61.1 % (42.0-75.0); Hemoglobin 11.7 g/dL (12.0-16.0); Mean Corpuscular Hemoglobin 31.1 pg (27.0-31.0); Mean Corpuscular Volume 94.4 fL (78.0-98.0); Mean Platelet Volume 8.8 fL (7.4-10.4); Platelet Count 157 thou/uL (130-400); RBC Distribution Width 12.8 % (11.5-14.5); Red Blood Cell (RBC) Count 3.77 mill/uL (4.20-5.40); White Blood Cell (WBC) Count 6.7 thou/uL (4.8-10.8)
[2020-06-09 06:58] LABS: Anion Gap 15 mmol/L (10-20); BUN (Urea Nitrogen) 10 mg/dL (9.8-20.1); Calc. Creatinine Clearance 88 mL/min (70-130); Calcium 8.6 mg/dL (7.8-10.44); Carbon Dioxide 25 mmol/L (23-31); Chloride 102 mmol/L (98-107); Glucose 143 mg/dL (83-110); Magnesium 1.9 mg/dL (1.6-2.6); Sodium 139 mmol/L (136-145)
[2020-06-09 07:00] LABS: Potassium 2.9 mmol/L (3.5-5.1)
[2020-06-09] MEDS ORDERED: Magnesium 2 GM/50 ML 2 GM in Premix Bag 1 BAG IVPB SCH (08:30)
[2020-06-09] MEDS: Propranolol HCl 20 MG TAB PO SCH ×3 (08:53→20:56)
[2020-06-09] MEDS: Losartan 25 MG TAB PO SCH (08:54)
[2020-06-09] MEDS: Escitalopram Oxalate 10 mg Tablet PO SCH (08:55)
[2020-06-09] MEDS: Polyethylene Glycol 3350 17 GM Packet PO SCH (08:55)
[2020-06-09] MEDS ORDERED: Potassium Chloride 40 MEQ in Sodium Chloride 0.9% 250 ML 250 ML IVPB SCH (09:00)
[2020-06-09 09:37] LABS: Bacteria/HPF 2+ HPF (None Seen); Squamous Epithelial 0-3 HPF (0-3); WBC/HPF Greater than 50 HPF (0-3)
[2020-06-09 09:38] LABS: Clarity CLOUDY (Clear)
[2020-06-09 09:39] LABS: Glucose, Urine (Dipstick) Negative (Negative); Leukocyte 500 Leu/uL (Negative); Nitrite Negative (Negative); Protein, Urine (Dipstick) 50 mg/dL (Neg-Trace); Specific Gravity, Urine 1.031 (1.002-1.036)
[2020-06-09 09:40] LABS: Bilirubin 1+ (Negative); Blood, Urine Negative (Negative); Ketone, Urine 10 mg/dL (Negative); Urobilinogen Normal mg/dL (Less than 2)
[2020-06-09 09:41] LABS: Urine Culture Reflex Yes Yes
[2020-06-09] MEDS ORDERED: Magnesium Oxide 400 MG TAB PO SCH (09:45)
--- NOTE | 2020-06-09 11:16 | PDOC.EVN ---
Event Note - Event Note Event Note: THe patient states that she has been having frequent falls . February she got an L1 fracture. SHe was placed in a brace. A few days ago, she fell on her right side and couldn't get up. SHe did not hit or head or lose consciousness. She denies tingling or numbness in her arms and legs. She says she just can't support herself when she stands up, denies dizziness, lightheadedness or palpitations She says she is frequently incontinent She does have incontinence and claims she is "wet" all the time. She is anxious about NPH on CT scan, states she had a friend in [place] who had a shunt placed and had miraculous results with that Gen: alert, awake, oriented times three Neuro: CN II-XII intact. 5/5 strength upper and lower extremities Reflexes: 1+ in the knees, 1+ in the arm . Clonus more prominent in the right foot than the left Lungs: clear CV: RRR This is 74 year old female who presented with recent L1 fracture, currently on a brace. MRI shows possible normal Pressure hydrocephalus Frequent falls - orthostatics negatives. MRI showed no stroke, possible NPH. Will consult neurology Recent L1 fracture - neurosurgery aware. Patient has a brace. No spinal stenosis evident. Dr Saini following as an outpatient Diabetes -fingersticks controlled, will continue to monitor Hypothyroid - continue levothyroxine
--- NOTE | 2020-06-09 13:27 | MRI ---
EXAM: MRI Brain WO Con PROVIDED CLINICAL HISTORY: Multiple falls COMPARISON: CT brain 06/08/2020 FINDINGS: There is prominence of the ventricular system somewhat out of proportion to the degree of sulcal prom inence, which can be seen in the setting of normal pressure hydrocephalus. There is no shift of the midline structures. There is no evidence for intracranial hemorrhage. Prominent chronic microvascular ischemic changes are seen involving the cerebral white matter. There is no evidence for restricted diffusion to suggest recent infarction. Appropriate flow voids are seen within the major intracranial vessels. The extracranial soft tissues and calvarial marrow signal appear unremarkable. IMPRESSION: 1. No evidence for an acute intracranial abnormality. 2. Chronic microvascular ischemic change.
[2020-06-09] MEDS: HumaLOG 300 UNITS/3 ML VIAL SC PRN ×2 (13:56→16:26)
--- NOTE | 2020-06-09 16:05 | CON ---
NEUROLOGY CONSULTATION DATE OF CONSULTATION: 06/09/2020 REASON FOR CONSULTATION: Multiple falls/normal-pressure hydrocephalus concern on imaging. HISTORY OF PRESENT ILLNESS: Ms. Neely is a 74-year-old female with medical history significant for hypertension, hyperlipidemia, vertebral disk disease and diabetes mellitus, presented to the emergency room after sustaining a fall at home. Per patient, she has multiple falls since the last month and she also broke her right femur and had to have surgery. She also had an L1 burst fracture. The patient has been seeing Dr. Saini in a Neurosurgery Clinic and has been to rehab twice, but continues to fall. The patient denies nausea, vomiting, headache, chest pain, abdominal pain, recent illness, focal numbness, focal paresthesias, dizziness, double vision, loss of vision associated with a fall. She had an MRI done in February 2020, which she has burst fracture of L1 vertebra and high-grade degenerative joint disease of L5-S1. Head CT showed possible hydrocephalus. MRI of the brain reviewed which did not show any acute intracranial pathology, but there was a concern of hydrocephalus. Per the patient, she does not have ongoing severe memory problems, but she does have urinary incontinence and uses a pad. She has multiple falls over the last few months. REVIEW OF SYSTEMS: All systems reviewed and were negative except the pertinent positives and negatives mentioned in the HPI. Allergies/Adverse Reactions: Allergy/AdvReac Type Severity Reaction Status Date / Time latex Allergy Intermediate Hives Verified 06/08/20 23:00 Home Medications: Medication Instructions Recorded Confirmed Type Aspirin [Ecotrin Low Strength] 81 mg PO HS 03/06/20 06/09/20 History Levothyroxine Sodium 100 mcg PO DAILY 03/06/20 06/09/20 History Pantoprazole [Protonix] 40 mg PO DAILY 03/06/20 06/09/20 History Simvastatin 40 mg PO HS 03/06/20 06/09/20 History clonazePAM [Klonopin] 0.5 mg PO BID 03/06/20 06/09/20 History Amlodipine [Norvasc] 5 mg PO DAILY 06/09/20 06/09/20 History Dulaglutide [Trulicity] 06/09/20 History Escitalopram Oxalate 10 mg PO DAILY 06/09/20 06/09/20 History Insulin Aspart [Novolog] units SC 06/09/20 History Insulin Degludec [Tresiba units SC 06/09/20 History Flextouch U-100] Losartan Potassium 100 mg PO DAILY 06/09/20 06/09/20 History Oxybutynin Chloride [Oxybutynin 15 mg PO DAILY 06/09/20 06/09/20 History Chloride ER] Propranolol HCl 20 mg PO TID 06/09/20 06/09/20 History PAST MEDICAL HISTORY: 1. Hypertension. 2. Hyperlipidemia. 3. Diabetes mellitus. PAST SURGICAL HISTORY: 1. Status post hip repair. 2. Hysterectomy. 3. Cholecystectomy. SOCIAL HISTORY: The patient is , lives with her . Denies smoking, alcohol, illegal drug use. PHYSICAL EXAMINATION: 145/71 88 18 General Appearance: NAD, awake alert Eye: PERRL, anicteric sclera ENT: normocephalic atraumatic, no oropharyngeal lesions, moist mucosa Neck: supple, symmetric, no JVD, no thyromegaly, no lymphadenopathy, no carotid bruit Heart: RRR, no murmur, no gallops, no rubs, normal peripheral pulses Respiratory: CTAB, no wheezes, no rales, no ronchi, normal chest expansion, no tachypnea, normal percussion Gastrointestinal: soft, non-tender, non-distended, normal bowel sounds, no palpable masses, no hepatomegaly, no splenomegaly, no bruit Extremities: no cyanosis, no clubbing, no edema Skin: normal turgor, no lesions, no rashes Neurological: Mental status, the patient is alert and oriented to person, place, and time. Cranial nerves II through XII intact. Motor, muscle tone and bulk are normal, moving all 4 extremities. Cerebellar, intact. Gait deferred due to patient's safety reason. Positive clonus. LABORATORY DATA: I reviewed the labs, which were significant for hyperglycemia. WBC 7.3 thou/uL (4.8-10.8) 06/08/20 16:30 RBC 3.94 mill/uL (4.20-5.40) L 06/08/20 16:30 Hgb 12.4 g/dL (12.0-16.0) 06/08/20 16:30 Hct 37.4 % (36.0-47.0) 06/08/20 16:30 MCV 95.2 fL (78.0-98.0) 06/08/20 16:30 MCH 31.6 pg (27.0-31.0) H 06/08/20 16:30 MCHC 33.2 g/dL (32.0-36.0) 06/08/20 16:30 RDW 12.7 % (11.5-14.5) 06/08/20 16:30 Plt Count 179 thou/uL (130-400) 06/08/20 16:30 MPV 8.7 fL (7.4-10.4) 06/08/20 16:30 Neutrophils % 73.4 % (42.0-75.0) 06/08/20 16: Lymphocytes % 18.4 % (21.0-51.0) L 06/08/20 16: Monocytes % 5.9 % (0.0-10.0) 06/08/20 16: Eosinophils % 1.0 % (0.0-10.0) 06/08/20 16: Basophils % 1.2 % (0.0-1.0) H 06/08/20 16:30 Neutrophils # 5.4 thou/uL (1.40-6.50) 06/08/20 16:30 Lymphocytes # 1.3 thou/uL (1.20-3.40) 06/08/20 16:30 Monocytes # 0.4 thou/uL (0.11-0.59) 06/08/20 16:30 Eosinophils # 0.1 thou/uL (0.0-0.7) 06/08/20 16: Basophils # 0.1 thou/uL (0.0-0.2) 06/08/20 16:30 Sodium 138 mmol/L (136-145) 06/08/20 16:30 Potassium 4.0 mmol/L (3.5-5.1) 06/08/20 16:30 Chloride 101 mmol/L (98-107) 06/08/20 16:30 Carbon Dioxide 25 mmol/L (23-31) 06/08/20 16:30 Anion Gap 16 mmol/L (10-20) 06/08/20 16:30 BUN 13 mg/dL (9.8-20.1) 06/08/20 16:30 Creatinine 0.77 mg/dL (0.6-1.1) 06/08/20 16:30 Estimated GFR (MDRD) 73 06/08/20 16:30 Glucose 205 mg/dL (83-110) H 06/08/20 16:30 POC Glucose 156 mg/dL (70-100) H 06/08/20 22:44 Calcium 8.9 mg/dL (7.8-10.44) 06/08/20 16:30 Total Bilirubin 0.6 mg/dL (0.2-1.2) 06/08/20 16:30 AST 13 U/L (5-34) 06/08/20 16:30 ALT 10 U/L (8-55) 06/08/20 16:30 Alkaline Phosphatase 79 U/L (40-110) 06/08/20 16:30 Troponin I 0.014 ng/mL (< 0.028) 06/08/20 16:30 Serum Total Protein 6.9 g/dL (5.8-8.1) 06/08/20 16:30 Albumin 4.0 g/dL (3.4-4.8) 06/08/20 16:30 Globulin 2.9 g/dL (2.4-3.5) 06/08/20 16:30 Albumin/Globulin Ratio 1.4 g/dL (1.2-2.2) 06/08/20 16:30 ASSESSMENT AND PLAN: Ms. Emelina Neely is a 74-year-old female with medical history significant for hypertension, hyperlipidemia, degenerative joint disease with acute burst fracture of the L1 vertebra and high-grade DJD at L5-S1, presented with presented with multiple falls. Head CT and MRI of the brain were concerning for her normal-pressure hydrocephalus. She also has known spinal cord pathology. It is difficult to perform high-volume tap because of the spinal cord pathology, but she does have a urinary incontinence and multiple falls, but denies any memory issues, which raises concern for normal-pressure hydrocephalus, Consult Neurosurgery to determine if she needs any intervention. Neuro checks every 4 hours. Continue Home medications. Continue medical management per primary team. Plan discussed in detail with the patient and her and also primary attending Dr. Bartholomew. Thank you for the consult. Job ID: [id number] [id number]
[2020-06-09] MEDS ORDERED: Potassium Chloride 20 MEQ TAB PO SCH (16:30)
[2020-06-09] MEDS: Enoxaparin Sodium 40 MG/0.4 ML SYRINGE SC SCH (20:56)
[2020-06-09] MEDS: Aspirin 81 mg Enteric Coated Tablet PO SCH (20:56)
[2020-06-09] MEDS: Acetaminophen 325 MG TAB PO PRN (20:57)
[2020-06-09] MEDS: Simvastatin 40 MG TAB PO SCH (21:03)
[2020-06-10 01:38] LABS: SARS-CoV-2 PCR by NAA Not Detected (NotDetected)
[2020-06-10] MEDS: Levothyroxine Sodium 100 MCG TAB PO SCH (05:43)
[2020-06-10] MEDS: HumaLOG 300 UNITS/3 ML VIAL SC PRN ×2 (05:43→12:47)
[2020-06-10 06:15] LABS: #Eosinphils 0.2 thou/uL (0.0-0.7); #Lymphocytes 1.4 thou/uL (1.20-3.40); #Monocytes 0.4 thou/uL (0.11-0.59); #Neutrophils 4.7 thou/uL (1.40-6.50); %Basophils 0.4 % (0.0-1.0); %Eosinophils 2.4 % (0.0-10.0); %Lymphocytes 21.1 % (21.0-51.0); %Monocytes 6.1 % (0.0-10.0); %Neutrophils 70.1 % (42.0-75.0); Hemoglobin 12.6 g/dL (12.0-16.0); Mean Corpuscular HGB CONC 33.8 g/dL (32.0-36.0); Mean Corpuscular Hemoglobin 32.1 pg (27.0-31.0); Mean Corpuscular Volume 94.9 fL (78.0-98.0); Mean Platelet Volume 8.8 fL (7.4-10.4); Platelet Count 160 thou/uL (130-400); RBC Distribution Width 12.7 % (11.5-14.5); Red Blood Cell (RBC) Count 3.93 mill/uL (4.20-5.40); White Blood Cell (WBC) Count 6.7 thou/uL (4.8-10.8)
[2020-06-10 06:48] LABS: Chloride 106 mmol/L (98-107); Sodium 136 mmol/L (136-145)
[2020-06-10 06:49] LABS: Calcium 8.6 mg/dL (7.8-10.44); Glucose 217 mg/dL (83-110)
[2020-06-10 06:51] LABS: Carbon Dioxide 16 mmol/L (23-31)
[2020-06-10 06:53] LABS: BUN (Urea Nitrogen) 9 mg/dL (9.8-20.1); Calc. Creatinine Clearance 89 mL/min (70-130)
[2020-06-10 06:55] LABS: Magnesium 1.8 mg/dL (1.6-2.6)
[2020-06-10 07:08] LABS: Anion Gap 18 mmol/L (10-20)
[2020-06-10] MEDS ORDERED: Magnesium 2 GM/50 ML 2 GM in Premix Bag 1 BAG IVPB SCH (07:45)
[2020-06-10] MEDS: Propranolol HCl 20 MG TAB PO SCH ×3 (08:21→21:00)
[2020-06-10] MEDS: Losartan 25 MG TAB PO SCH (08:27)
[2020-06-10] MEDS: Escitalopram Oxalate 10 mg Tablet PO SCH (08:27)
[2020-06-10] MEDS: Polyethylene Glycol 3350 17 GM Packet PO SCH (08:28)
--- NOTE | 2020-06-10 16:42 | PDOC.HOSPP ---
- Subjective Encounter Date: 06/10/20 Encounter Time: 09:00 Subjective: F/u: weakness Spoke with daughter and the patient. She denies pain. She urinated and had a bowel movement in the bed per nursing staff. She was able to get up slightly , but was restrained by a rope. She also has a brace on her chest. Discussed that PT recommended home health. Daughter expressed concern that the patient has fallen 6 times in 1.5 months and she states she was getting home health with PT, but doesn't think it is adequate enough and is interested in rehab PT states they recommended rehab because they did not see much improvement from when she got rehab last time. They felt she had more anxiety and she only took two steps yesterday because of nervousness - Objective Vital Signs & Weight: Vital Signs (12 hours) Temp Pulse Resp BP BP BP Pulse Ox 06/10/20 15:43 98.4 F 67 16 136/78 126/66 98 06/10/20 11:00 169/85 H 145/89 H 06/10/20 07:23 97.9 F 67 16 123/64 99 Weight Weight 171 lb I&O: 06/09/20 06/10/20 06/11/20 06:59 06:59 06:59 Intake Total 240 Balance 240 Result Diagrams: 06/10/20 05:43 06/10/20 05:43 Additional Labs: Accuchecks 06/10/20 06/10/20 06/10/20 15:46 11:33 05:27 POC Glucose 220 H 239 H 212 H 06/09/20 20:10 POC Glucose 220 H Hospitalist ROS - Review of Systems Constitutional: denies: fever, chills - Medication Medications: Active Medications Generic Name Dose Route Start Last Admin Trade Name Freq PRN Reason Stop Dose Admin Acetaminophen 650 mg 06/09/20 02:03 06/09/20 20:57 Acetaminophen 325 Mg Tab PO 650 mg Q4H PRN Administration Headache/Fever/Mild Pain (1-3) Aspirin 81 mg 06/09/20 21:00 06/09/20 20:56 Aspirin 81 Mg Enteric Coated Tablet PO 81 mg HS MARCO Administration Enoxaparin Sodium 40 mg 06/09/20 21:00 06/09/20 20:56 Enoxaparin Sodium 40 Mg/0.4 Ml Syringe SC 40 mg 2100 MARCO Administration Escitalopram Oxalate 10 mg 06/09/20 09:00 06/10/20 08:27 Escitalopram Oxalate 10 Mg Tablet PO 10 mg DAILY MARCO Administration Insulin Human Lispro 0 units 06/09/20 02:18 06/10/20 12:47 Humalog 300 Units/3 Ml Vial SC 4 unit .MODERATE SLIDING SC PRN Administration Moderate Correctional Scale Levothyroxine Sodium 100 mcg 06/09/20 06:00 06/10/20 05:43 Levothyroxine Sodium 100 Mcg Tab PO 100 mcg 0600 MARCO Administration Losartan Potassium 100 mg 06/09/20 09:00 06/10/20 08:27 Losartan 25 Mg Tab PO 100 mg DAILY MARCO Administration Pantoprazole Sodium 40 mg 06/09/20 09:00 06/10/20 08:26 Pantoprazole 40 Mg Tab PO 40 mg DAILY MARCO Administration Polyethylene Glycol 17 gm 06/09/20 09:00 06/10/20 08:28 Polyethylene Glycol 3350 17 Gm Packet PO Not Given DAILY MARCO Propranolol HCl 10 mg 06/09/20 09:00 06/10/20 15:01 Propranolol Hcl 20 Mg Tab PO 10 mg TID MARCO Administration Simvastatin 40 mg 06/09/20 21:00 06/09/20 21:03 Simvastatin 40 Mg Tab PO 40 mg HS MARCO Administration Sodium Chloride 10 ml 06/09/20 09:00 06/10/20 08:28 Flush - Normal Saline 10 Ml Syringe IVF 10 ml Q12HR MARCO Administration Hospitalist Exam Vitals: Vital Signs (12 hours) Temp Pulse Resp BP BP BP Pulse Ox 06/10/20 15:43 98.4 F 67 16 136/78 126/66 98 06/10/20 11:00 169/85 H 145/89 H 06/10/20 07:23 97.9 F 67 16 123/64 99 Weight Weight 171 lb General Appearance: NAD, awake alert Eye: PERRL, anicteric sclera ENT: normocephalic atraumatic, no oropharyngeal lesions Neck: supple, symmetric, no JVD Heart: RRR, no murmur, no gallops, no rubs Respiratory: CTAB, no wheezes, no rales, no ronchi Gastrointestinal: soft, non-tender, non-distended, normal bowel sounds Extremities: no cyanosis, no clubbing, no edema Skin: normal turgor, no lesions, no rashes Neurological - other findings: normal strength bilaterally. No clonus evident. Mute Babinski Musculoskeletal: normal tone, normal strength, no muscle wasting Psychiatric: normal affect, normal behavior, A&O x 3 Hosp A/P - Plan MRI: no stroke, possible NPH This is 74 year old female who presented with recent L1 fracture, currently on a brace. MRI shows possible normal Pressure hydrocephalus #Frequent falls #Possible normal pressure hydrocephalus - orthostatics negatives.CT showed NPH. MRI showed no stroke, possible NPH. Neurology recommended neurosurgery consult. Neurosurgery recommended arranging for an outpatient lumbar puncture. Patient does not feel safe going home prior to [place], and family wants her to go to rehab temporarily or SNF? - case management consulted for rehab Recent L1 fracture - neurosurgery aware. Patient has a brace. No spinal stenosis evident. Dr Saini following as an outpatient Diabetes -fingersticks 200's. Will add lantus 8 units hs. Will verify home dose of tresiba with patient Hypothyroid - continue levothyroxine
[2020-06-10] MEDS: Acetaminophen 325 MG TAB PO PRN (19:34)
[2020-06-10] MEDS: Simvastatin 40 MG TAB PO SCH (21:00)
[2020-06-10] MEDS ORDERED: Insulin Glargine 8 UNITS in Pre-Filled Syringe 1 EACH SC SCH (21:00)
[2020-06-10] MEDS: Aspirin 81 mg Enteric Coated Tablet PO SCH (21:00)
[2020-06-10] MEDS: Enoxaparin Sodium 40 MG/0.4 ML SYRINGE SC SCH (21:00)
[2020-06-11] MEDS: Levothyroxine Sodium 100 MCG TAB PO SCH (06:13)
[2020-06-11] MEDS: HumaLOG 300 UNITS/3 ML VIAL SC PRN ×3 (06:13→21:05)
[2020-06-11 06:22] LABS: #Basophils 0.1 thou/uL (0.0-0.2); #Eosinphils 0.2 thou/uL (0.0-0.7); #Lymphocytes 1.6 thou/uL (1.20-3.40); #Monocytes 0.4 thou/uL (0.11-0.59); #Neutrophils 3.2 thou/uL (1.40-6.50); %Basophils 1.3 % (0.0-1.0); %Eosinophils 3.5 % (0.0-10.0); %Lymphocytes 29.6 % (21.0-51.0); %Monocytes 7.6 % (0.0-10.0); Hemoglobin 12.8 g/dL (12.0-16.0); Mean Corpuscular HGB CONC 33.9 g/dL (32.0-36.0); Mean Corpuscular Hemoglobin 31.7 pg (27.0-31.0); Mean Corpuscular Volume 93.5 fL (78.0-98.0); Mean Platelet Volume 8.5 fL (7.4-10.4); Platelet Count 176 thou/uL (130-400); RBC Distribution Width 12.7 % (11.5-14.5); Red Blood Cell (RBC) Count 4.02 mill/uL (4.20-5.40); White Blood Cell (WBC) Count 5.5 thou/uL (4.8-10.8)
[2020-06-11 06:48] LABS: Anion Gap 17 mmol/L (10-20); BUN (Urea Nitrogen) 9 mg/dL (9.8-20.1); Calc. Creatinine Clearance 81 mL/min (70-130); Calcium 8.7 mg/dL (7.8-10.44); Carbon Dioxide 23 mmol/L (23-31); Chloride 104 mmol/L (98-107); Glucose 205 mg/dL (83-110); Potassium 3.5 mmol/L (3.5-5.1); Sodium 140 mmol/L (136-145)
[2020-06-11] MEDS: Escitalopram Oxalate 10 mg Tablet PO SCH (08:00)
[2020-06-11] MEDS: Polyethylene Glycol 3350 17 GM Packet PO SCH (08:00)
[2020-06-11] MEDS: Losartan 25 MG TAB PO SCH (08:00)
[2020-06-11] MEDS ORDERED: Magnesium 2 GM/50 ML 2 GM in Premix Bag 1 BAG IVPB SCH (08:15)
[2020-06-11] MEDS ORDERED: Potassium Chloride 20 MEQ TAB PO SCH (08:15)
[2020-06-11] MEDS: Propranolol HCl 20 MG TAB PO SCH ×3 (09:03→21:02)
[2020-06-11] MEDS ORDERED: cefTRIAXone\\ROCEPHIN 1 GM in Sodium Chloride 0.9% 100 ML IVPB SCH (12:00)
--- NOTE | 2020-06-11 16:18 | PDOC.HOSPP ---
- Subjective Encounter Date: 06/11/20 Encounter Time: 08:00 Subjective: F/u: Frequent falls, NPH The patient did not urinate or poop in the bed. She reports burning when she urinates. She denies back pain. states everytime the patient goes to rehab, she gets better, but then as soon as she is done with rehab she falls again. has never witnessed any of her falls to have an idea of what exactly happens when she falls. Patient is still anxious about being discharged and getting outpatient neurosurgery appt. She states she called Dr. saini's office and nobody answered the phone. She is still interested in [place] [facility] [place]. Guevara's office, they stated the earliest they would be able to see her is in ten days, because they need demographics and face sheet since it is an elective procedure. She states her friend got LP done in [facility] and wants to be transferred there, I have called them as well - Objective Vital Signs & Weight: Vital Signs (12 hours) Temp Pulse Resp BP BP BP BP 06/11/20 11:00 98.1 F 67 18 136/61 06/11/20 08:49 06/11/20 07:36 98.9 F 75 18 145/78 H 126/76 147/83 H Pulse Ox 06/11/20 11:00 97 06/11/20 08:49 98 06/11/20 07:36 98 Weight Weight 171 lb I&O: 06/10/20 06/11/20 06/12/20 06:59 06:59 06:59 Intake Total 1620 Output Total 1200 Balance 420 Result Diagrams: 06/11/20 06:04 06/11/20 06:04 Additional Labs: Accuchecks 06/11/20 06/11/20 06/10/20 11:58 05:04 19:54 POC Glucose 309 H 177 H 237 H Hospitalist ROS - Review of Systems Constitutional: denies: fever, chills - Medication Medications: Active Medications Generic Name Dose Route Start Last Admin Trade Name Freq PRN Reason Stop Dose Admin Acetaminophen 650 mg 06/09/20 02:03 06/10/20 19:34 Acetaminophen 325 Mg Tab PO 650 mg Q4H PRN Administration Headache/Fever/Mild Pain (1-3) Aspirin 81 mg 06/09/20 21:00 06/10/20 21:00 Aspirin 81 Mg Enteric Coated Tablet PO 81 mg HS MARCO Administration Enoxaparin Sodium 40 mg 06/09/20 21:00 06/10/20 21:00 Enoxaparin Sodium 40 Mg/0.4 Ml Syringe SC 40 mg 2100 MARCO Administration Escitalopram Oxalate 10 mg 06/09/20 09:00 06/11/20 08:00 Escitalopram Oxalate 10 Mg Tablet PO 10 mg DAILY MARCO Administration Insulin Glargine 8 units/ 0.08 mls @ 0 mls/hr 06/10/20 21:00 06/10/20 21:00 Miscellaneous Medication SC 0.08 mls HS MARCO Administration Ceftriaxone Sodium 1 gm/ 100 mls @ 200 mls/hr 06/11/20 12:00 06/11/20 12:00 Sodium Chloride IVPB 100 mls 1200 MARCO Administration Insulin Human Lispro 0 units 06/09/20 02:18 06/11/20 12:00 Humalog 300 Units/3 Ml Vial SC 8 unit .MODERATE SLIDING SC PRN Administration Moderate Correctional Scale Levothyroxine Sodium 100 mcg 06/09/20 06:00 06/11/20 06:13 Levothyroxine Sodium 100 Mcg Tab PO 100 mcg 0600 MARCO Administration Losartan Potassium 100 mg 06/09/20 09:00 06/11/20 08:00 Losartan 25 Mg Tab PO 100 mg DAILY MARCO Administration Pantoprazole Sodium 40 mg 06/09/20 09:00 06/11/20 08:00 Pantoprazole 40 Mg Tab PO 40 mg DAILY MARCO Administration Polyethylene Glycol 17 gm 06/09/20 09:00 06/11/20 08:00 Polyethylene Glycol 3350 17 Gm Packet PO Not Given DAILY MARCO Propranolol HCl 10 mg 06/09/20 09:00 06/11/20 14:07 Propranolol Hcl 20 Mg Tab PO 10 mg TID MARCO Administration Simvastatin 40 mg 06/09/20 21:00 06/10/20 21:00 Simvastatin 40 Mg Tab PO 40 mg HS MARCO Administration Sodium Chloride 10 ml 06/09/20 09:00 06/11/20 08:00 Flush - Normal Saline 10 Ml Syringe IVF 10 ml Q12HR MARCO Administration Hospitalist Exam Vitals: Vital Signs (12 hours) Temp Pulse Resp BP BP BP BP 06/11/20 11:00 98.1 F 67 18 136/61 06/11/20 08:49 06/11/20 07:36 98.9 F 75 18 145/78 H 126/76 147/83 H Pulse Ox 06/11/20 11:00 97 06/11/20 08:49 98 06/11/20 07:36 98 Weight Weight 171 lb General Appearance: NAD, awake alert Eye: PERRL, anicteric sclera ENT: normocephalic atraumatic, no oropharyngeal lesions Neck: no JVD Heart: RRR, no murmur, no gallops, no rubs Respiratory: CTAB, no wheezes, no rales, no ronchi, no tachypnea Gastrointestinal: soft, non-tender, non-distended, normal bowel sounds Extremities: no cyanosis, no clubbing, no edema Skin: normal turgor, no lesions, no rashes Neurological: cranial nerve grossly intact, normal sensation to touch, no weakness, no focal deficits, no new deficit Musculoskeletal: normal tone, normal strength, no muscle wasting Psychiatric: normal affect, normal behavior, A&O x 3 Hosp A/P - Plan MRI: no stroke, possible NPH This is 74 year old female who presented with recent L1 fracture, currently on a brace. MRI shows possible normal Pressure hydrocephalus #Frequent falls #Possible normal pressure hydrocephalus - orthostatics negatives.CT showed NPH. MRI showed no stroke, possible NPH. Neurology recommended neurosurgery consult. Neurosurgery recommended arranging for an outpatient lumbar puncture. Patient does not feel safe going home prior to her appointment [place], and family wants her to go to rehab temporarily or SNF? - case management consulted for rehab E coli UTI - started IV ceftriaxone Recent L1 fracture - neurosurgery aware. Patient has a brace. No spinal stenosis evident. Dr Saini is following as an outpatient. She is wearing a brace Diabetes -fingersticks 200's. Started lantus, resumed home tresiba dose 40 units Hypothyroid - continue levothyroxine Dispo :awaiting to hear back from [facility] whether they can do the LP there , otherwise needs to fu as an outpatient with neurosurgeon
[2020-06-11] MEDS: Insulin Glargine 40 UNITS in Pre-Filled Syringe 1 EACH SC SCH (17:26)
[2020-06-11] MEDS: Simvastatin 40 MG TAB PO SCH (21:02)
[2020-06-11] MEDS: Enoxaparin Sodium 40 MG/0.4 ML SYRINGE SC SCH (21:03)
[2020-06-11] MEDS: Acetaminophen 325 MG TAB PO PRN (21:03)
[2020-06-11] MEDS: Aspirin 81 mg Enteric Coated Tablet PO SCH (21:03)
[2020-06-12] MEDS: Levothyroxine Sodium 100 MCG TAB PO SCH (05:16)
[2020-06-12] MEDS: HumaLOG 300 UNITS/3 ML VIAL SC PRN ×2 (05:17→11:49)
[2020-06-12 07:19] VITALS: BP 150/70; TEMP 97.9
[2020-06-12] MEDS: Losartan 25 MG TAB PO SCH (08:21)
[2020-06-12] MEDS: Escitalopram Oxalate 10 mg Tablet PO SCH (08:21)
[2020-06-12] MEDS: Polyethylene Glycol 3350 17 GM Packet PO SCH (08:22)
[2020-06-12] MEDS: Propranolol HCl 20 MG TAB PO SCH (08:22)
[2020-06-12] MEDS: Insulin Glargine 40 UNITS in Pre-Filled Syringe 1 EACH SC SCH (08:22)
--- NOTE | 2020-06-12 18:33 | PDOC.DS.DS ---
Provider Date of Admission: 06/09/20 11:10 Date of Discharge: 06/12/20 Admitting Provider: Jv Cast MD Consultations: Neurology (Dr. Davis), Neurosurgery (Dr. Saini) Primary Care Physician: Jose Christianson MD Course Hospital Course: Discharge Diagnoses: 1. Gait instability possibly secondary to NPH 2. UTI Brief HPI: this is a 74 year old female with pst medical history of hypertension, hypothyroidism, and GERD who presented to the ER with frequent falls. The patient had fallen 6 times in the past month per daughter and has been having increasing incontinence. She had been to rehab one month prior after she broke her hip. According to her , she improves with rehab and decompensates when it stops. UA showed findings suspicious for a UTI and CT head showed possible normal pressure hydrocephalus, so she was admitted for further workup. Gait instability secondary to NPH: MRI of the brain was done which confirmed possible NPH. The patient did exhibit features of memory problems, gait instability and urinary incontinence and also at one point ad some clonus in her right leg, so neurology was consulted who recommended neurosurgery consult for evaluation of need for high volume LP. Neurosurgery recommended outpatient workup in their clinic. The patient was hesitant upon going home due to fear of falling at home and getting to her appointment, so I attempted to transfer her to [facility] for neurosurgery evaluation as an inpatient, but the surgeon there Dr. Guevara also recommended outpatient workup. The patient tried to make an appointment with Dr. Saini, however he is on vacation until July. I made a referral to Dr. Guevara's office per patient request, and they reportedly will be calling her to make an appointment with her today. She was seen by PT and OT and will be set up with home health on discharge. UTI: urine culture grew 100,000 E coli. The patient was treated with IV ceftriaxone. Her dysuria resolved, so she will be discharged with cefdinir to complete a seven day course of antibiotics. L1 fracture: neurosurgery recommended a brace and o utpatient follow up with Dr. Saini. Pertinent Studies: Brain MRI: chronic microvascular changes. Possible NPH CT head: possible NPH Knee Xray: no cute fracture Right hip X ray: s/p arthroplasty. No acute fracture Wrist X ray: no acute abnormality Resuscitation Status: 06/09/20 02:03 Resuscitation Status Routine Resuscitation Status: FULL: Full Resuscitation Lab Results: 06/11/20 06:04 06/11/20 06:04 Abnormal Lab Results - Last 48 hrs 06/11/20 06:04: BUN 9 L 06/11/20 06:04: RBC 4.02 L, MCH 31.7 H, Basophils % 1.3 H Microbiology - Entire Visit 06/09/20 09:43 Urine clean catch Urine Culture - Final Escherichia coli Vitals: Vital Signs (12 hours) Temp Pulse Resp BP Pulse Ox 06/12/20 08:56 97 06/12/20 07:18 97.9 F 65 20 150/70 H 97 Weight Weight 171 lb Physical Exam: The patient was seen and examined on the day of discharge. General Appearance: NAD, awake alert Eye: PERRL, anicteric sclera ENT: normocephalic atraumatic, no oropharyngeal lesions Neck: supple, symmetric, no JVD, no thyromegaly Respiratory: CTAB, no wheezes, no rales, no ronchi Cardiovascular: RRR, no murmur, no gallops, no rubs, normal peripheral pulses Gastrointestinal: soft, non-tender, non-distended, normal bowel sounds Extremities: no cyanosis, no clubbing, no edema Skin: normal turgor, no lesions, no rashes Neurological: cranial nerve grossly intact, normal sensation to touch, no weakness, no focal deficits, no new deficit Plan Prescriptions: Cefdinir [Omnicef] 300 mg PO BID #12 cap Home Medications: Medication Instructions Recorded Confirmed Type Aspirin [Ecotrin Low Strength] 81 mg PO HS 03/06/20 06/09/20 History Levothyroxine Sodium 100 mcg PO DAILY 03/06/20 06/09/20 History Pantoprazole [Protonix] 40 mg PO DAILY 03/06/20 06/09/20 History Simvastatin 40 mg PO HS 03/06/20 06/09/20 History clonazePAM [Klonopin] 0.5 mg PO BID 03/06/20 06/09/20 History Amlodipine [Norvasc] 5 mg PO DAILY 06/09/20 06/09/20 History Dulaglutide [Trulicity] 1 pen SC [id number] 06/09/20 06/11/20 History Escitalopram Oxalate 10 mg PO DAILY 06/09/20 06/09/20 History Insulin Aspart [Novolog] 10 units SC DAILY 06/09/20 06/11/20 History Insulin Degludec [Tresiba 40 units SC DAILY 06/09/20 06/11/20 History Flextouch U-100] Losartan Potassium 100 mg PO DAILY 06/09/20 06/09/20 History Oxybutynin Chloride [Oxybutynin 15 mg PO DAILY 06/09/20 06/09/20 History Chloride ER] Propranolol HCl 20 mg PO TID 06/09/20 06/09/20 History Cefdinir [Omnicef] 300 mg PO BID #12 cap 06/12/20 Rx Allergies: latex Allergy (Intermediate, Verified 06/08/20 23:00) Hives blisters Activity:: Activity as Tolerated Nourishment:: Heart Healthy Diet Referrals: [facility] [Outside] Jose Christianson MD [Primary Care Provider] - 7 Days Deep Saini MD [Active] - Disposition: HOME Quality CORE MEASURES:: N/A
[2020-06-12] MEDS ORDERED: Cefdinir 300 MG CAP PO SCH (21:00)
== END 2020-06-12 12:10 | disposition home or self-care (01) | DRG 57 ==
LOC: ERS 11:59 → T4-B 19:56 → OBSVTOIN 06-09 11:10
PROVIDERS: ADMIT Internal Medicine; ATTEND Internal Medicine
DX: G91.2 (Idiopathic) normal pressure hydrocephalus (principal); S32.011A Stable burst fracture of first lumbar vertebra, initial encounter for closed fracture; N39.0 Urinary tract infection, site not specified; I10 Essential (primary) hypertension; E11.9 Type 2 diabetes mellitus without complications; E78.5 Hyperlipidemia, unspecified; F32.9 Major depressive disorder, single episode, unspecified; R29.6 Repeated falls; E03.9 Hypothyroidism, unspecified; E78.00 Pure hypercholesterolemia, unspecified; Z90.49 Acquired absence of other specified parts of digestive tract; Z90.710 Acquired absence of both cervix and uterus; Z98.890 Other specified postprocedural states; Z79.899 Other long term (current) drug therapy; Z87.891 Personal history of nicotine dependence; Z91.040 Latex allergy status; Z79.82 Long term (current) use of aspirin; Z79.4 Long term (current) use of insulin; Z79.890 Hormone replacement therapy; B96.20 Unspecified Escherichia coli [E. coli] as the cause of diseases classified elsewhere; R26.89 Other abnormalities of gait and mobility; K21.9 Gastro-esophageal reflux disease without esophagitis; Z20.822 Contact with and (suspected) exposure to COVID-19; M41.9 Scoliosis, unspecified
CPT/HCPCS: 29125; 36415; 36416; 70450; 70551; 72100; 80048; 80053; 81001; 83735; 84484; 85025; 87077; 87086; 87186; 87635; 93005; 96374; G0378; J0696; J1650; J1815; J3475; J3480; J3490; J7050; U0003; U0005

== ENCOUNTER 2020-10-31 10:55 | Outpatient (CLI) | payer MEDICARE, OTHER | END 2020-10-31 10:56 | disposition home or self-care (01) | LOC: BICMAMMO 10:55 | PROVIDERS: ATTEND Student in an Organized Health Care Education/Training Program | DX: Z12.31 Encounter for screening mammogram for malignant neoplasm of breast (principal) | CPT/HCPCS: 77063; 77067 ==

== ENCOUNTER 2021-04-25 10:31 | Outpatient (CLI) | payer MEDICARE, OTHER | END 2021-04-25 10:32 | disposition home or self-care (01) | LOC: BICMAMMO 10:31 | PROVIDERS: ATTEND Internal Medicine | DX: N63.10 Unspecified lump in the right breast, unspecified quadrant (principal); R92.8 Other abnormal and inconclusive findings on diagnostic imaging of breast | CPT/HCPCS: 76642; 77065; G0279 ==

== ENCOUNTER 2021-08-22 10:10 | Outpatient (CLI) | payer MEDICARE, OTHER | END 2021-08-22 10:11 | disposition home or self-care (01) | LOC: TBSIIMAG 10:10 | PROVIDERS: ATTEND Physician Assistant | DX: M54.50 Low back pain, unspecified (principal); M53.3 Sacrococcygeal disorders, not elsewhere classified; S32.011A Stable burst fracture of first lumbar vertebra, initial encounter for closed fracture; M43.9 Deforming dorsopathy, unspecified | CPT/HCPCS: 72072; 72100 ==

== ENCOUNTER 2021-09-27 12:04 | Outpatient (CLI) | payer MEDICARE, OTHER | END 2021-09-27 12:05 | disposition home or self-care (01) | LOC: TBSIIMAG 12:04 | PROVIDERS: ATTEND Specialist | DX: M48.062 Spinal stenosis, lumbar region with neurogenic claudication (principal); S32.019A Unspecified fracture of first lumbar vertebra, initial encounter for closed fracture; M48.061 Spinal stenosis, lumbar region without neurogenic claudication | CPT/HCPCS: 72148 ==

== ENCOUNTER 2021-11-13 10:25 | Outpatient (CLI) | payer MEDICARE, OTHER | END 2021-11-13 10:26 | disposition home or self-care (01) | LOC: BICMAMMO 10:25 | PROVIDERS: ATTEND Internal Medicine | DX: Z12.31 Encounter for screening mammogram for malignant neoplasm of breast (principal) | CPT/HCPCS: 77063; 77067 ==

== ENCOUNTER 2022-05-08 11:25 | Outpatient (CLI) | payer MEDICARE, OTHER | END 2022-05-08 11:26 | disposition home or self-care (01) | LOC: SCSMRI 11:25 | PROVIDERS: ATTEND Nurse Practitioner Family | DX: M48.062 Spinal stenosis, lumbar region with neurogenic claudication (principal); S32.011A Stable burst fracture of first lumbar vertebra, initial encounter for closed fracture; M47.816 Spondylosis without myelopathy or radiculopathy, lumbar region; M47.817 Spondylosis without myelopathy or radiculopathy, lumbosacral region; M47.815 Spondylosis without myelopathy or radiculopathy, thoracolumbar region | CPT/HCPCS: 72148 ==

== ENCOUNTER 2022-06-17 12:46 | Outpatient (CLI) | payer MEDICARE, OTHER | END 2022-06-17 12:47 | disposition home or self-care (01) | LOC: SCSMRI 12:46 | PROVIDERS: ATTEND Orthopaedic Surgery | DX: S32.001D Stable burst fracture of unspecified lumbar vertebra, subsequent encounter for fracture with routine healing (principal) | CPT/HCPCS: 72195 ==

== ENCOUNTER 2022-10-15 05:19 | Inpatient (IN) | payer MEDICARE, OTHER ==
[2022-10-15] MEDS ORDERED: fentaNYL 50 mcg/mL 1 mL Vial ONE (05:39)
[2022-10-15] MEDS ORDERED: Ketorolac Tromethamine 30 MG/ML VIAL ONE (05:39)
[2022-10-15 06:07] LABS: #Eosinphils 0.2 thou/uL (0.0-0.7); #Monocytes 0.2 thou/uL (0.11-0.59); #Neutrophils 11.9 thou/uL (1.40-6.50); %Basophils 0.2 % (0.0-1.0); %Eosinophils 1.4 % (0.0-10.0); %Lymphocytes 5.6 % (21.0-51.0); %Monocytes 1.1 % (0.0-10.0); %Neutrophils 90.3 % (42.0-75.0); Hemoglobin 13.4 g/dL (12.0-16.0); Mean Corpuscular HGB CONC 34.2 g/dL (32.0-36.0); Mean Corpuscular Hemoglobin 31.9 pg (27.0-31.0); Mean Corpuscular Volume 93.3 fl (78.0-98.0); Mean Platelet Volume 10.1 fL (7.4-10.4); Platelet Count 174 10x3/uL (130-400); RBC Distribution Width 12.5 % (11.5-14.5); White Blood Cell (WBC) Count 13.2 10x3/uL (4.8-10.8)
[2022-10-15 06:28] LABS: ALT (SGPT) 20 U/L (8-55); AST (SGOT) 19 U/L (5-34); Albumin 3.9 g/dL (3.4-4.8); Alkaline Phosphatase 55 U/L (40-110); Anion Gap 13 mmol/L (10-20); BUN (Urea Nitrogen) 11 mg/dL (9.8-20.1); Bilirubin, Total 0.5 mg/dL (0.2-1.2); Calc. Creatinine Clearance 0 mL/min (70-130); Calcium 9.3 mg/dL (7.8-10.44); Carbon Dioxide 25 mmol/L (23-31); Chloride 102 mmol/L (98-107); Estimated GFR 71; Globulin 2.8 g/dL (2.4-3.5); Glucose 169 mg/dL (83-110); Protein, Total 6.7 g/dL (5.8-8.1); Sodium 136 mmol/L (136-145)
[2022-10-15 09:37] LABS: Bacteria/HPF None Seen HPF (None Seen); Bilirubin Negative (Negative); Blood, Urine Negative (Negative); CAUTI Indications for Culture Alt mental st,lethar; Clarity Clear (Clear); Glucose, Urine (Dipstick) Normal (Negative); Ketone, Urine Negative (Negative); Leukocyte Negative Leu/uL (Negative); Nitrite Negative (Negative); Protein, Urine (Dipstick) 10 mg/dL (Neg-Trace); RBC/HPF 0-3 HPF (0-3); Specific Gravity, Urine 1.016 (1.002-1.036); Squamous Epithelial 0-3 HPF (0-3); Urobilinogen Normal mg/dL (Less than 2); WBC/HPF 0-3 HPF (0-3)
[2022-10-15 09:44] LABS: Urine Culture Reflex No No
[2022-10-15] MEDS ORDERED: Glucagon 1 MG/ML KIT IM PRN (11:31)
[2022-10-15] MEDS ORDERED: traMADol HCl 50 MG TAB PO PRN (11:31)
[2022-10-15] MEDS ORDERED: Dextrose 50% Abboject 50 ML SYRINGE SLOW IVP PRN (11:31)
[2022-10-15] MEDS ORDERED: Dextrose 5% in Water 1,000 ML IV PRN (11:31)
[2022-10-15] MEDS ORDERED: Acetaminophen 325 MG TAB PO PRN (11:31)
[2022-10-15] MEDS ORDERED: TETANUS, DIPHTHERIA TOX,ADULT (TDVAX) 0.5 ML VIAL IM ONE (11:31)
[2022-10-15] MEDS ORDERED: Acetaminophen 500 MG TAB PO SCH (13:00)
[2022-10-15 15:01] VITALS: BMI 26.3
[2022-10-15] MEDS: Acetaminophen 500 MG TAB PO SCH ×2 (15:51→23:04)
[2022-10-15] MEDS: Cyclobenzaprine 10 MG TAB PO PRN (15:52)
[2022-10-15] MEDS: traMADol HCl 50 MG TAB PO SCH ×2 (15:52→23:04)
[2022-10-15] MEDS: Famotidine 20 MG TAB PO SCH (20:52)
[2022-10-15] MEDS ORDERED: clonazePAM 0.5 MG TAB PO SCH (22:45)
[2022-10-16] MEDS: HumaLOG 300 UNITS/3 ML VIAL SC PRN ×2 (00:21→12:52)
[2022-10-16] MEDS: Acetaminophen 500 MG TAB PO SCH ×4 (05:14→23:33)
[2022-10-16] MEDS: traMADol HCl 50 MG TAB PO SCH ×4 (05:14→23:33)
[2022-10-16] MEDS ORDERED: Sodium Chloride 0.9% 500 ML IV SCH (07:00)
[2022-10-16] MEDS: Famotidine 20 MG TAB PO SCH (08:07)
[2022-10-16] MEDS: clonazePAM 0.5 MG TAB PO SCH ×2 (08:08→21:01)
[2022-10-16] MEDS: Escitalopram Oxalate 10 mg Tablet PO SCH (08:49)
[2022-10-16] MEDS: Levothyroxine Sodium 100 MCG TAB PO SCH (08:49)
[2022-10-16] MEDS: Cholecalciferol 1,000 UNITS (25 MCG) TAB PO SCH (08:49)
[2022-10-16] MEDS: Propranolol HCl 20 MG TAB PO SCH ×3 (08:50→20:59)
[2022-10-16] MEDS ORDERED: Non-Formulary Item 1 EACH (Losartan Potassium [Losartan Potassium] 100 MG Tablet) PO SCH (09:00)
[2022-10-16] MEDS ORDERED: Cholecalciferol 1,000 UNITS (25 MCG) TAB PO SCH (09:00)
[2022-10-16] MEDS ORDERED: Losartan 25 MG TAB PO SCH (09:00)
[2022-10-16] MEDS ORDERED: Scopolamine 1.5 mg/72 hour Patch TD SCH (12:00)
[2022-10-16] MEDS ORDERED: Ondansetron PF 4 MG/2 ML Vial IVP PRN (12:09)
[2022-10-16] MEDS ORDERED: Ondansetron PF 4 MG/2 ML Vial IVP SCH (12:15)
[2022-10-16] MEDS ORDERED: Simvastatin 40 MG TAB PO SCH (21:00)
[2022-10-16] MEDS: Atorvastatin Calcium 20 MG TAB PO SCH (21:01)
[2022-10-16] MEDS: Aspirin 81 mg Enteric Coated Tablet PO SCH (21:01)
[2022-10-17] MEDS: HumaLOG 300 UNITS/3 ML VIAL SC PRN (00:37)
[2022-10-17] MEDS: traMADol HCl 50 MG TAB PO SCH ×4 (05:11→23:17)
[2022-10-17] MEDS: Acetaminophen 500 MG TAB PO SCH ×4 (05:11→23:19)
[2022-10-17] MEDS: clonazePAM 0.5 MG TAB PO SCH ×2 (08:49→19:47)
[2022-10-17] MEDS: Levothyroxine Sodium 100 MCG TAB PO SCH (08:54)
[2022-10-17] MEDS: Escitalopram Oxalate 10 mg Tablet PO SCH (08:54)
[2022-10-17] MEDS: Propranolol HCl 20 MG TAB PO SCH ×3 (08:55→19:47)
[2022-10-17] MEDS: Cholecalciferol 1,000 UNITS (25 MCG) TAB PO SCH (08:55)
[2022-10-17 09:03] LABS: #Eosinphils 0.4 thou/uL (0.0-0.7); #Monocytes 0.5 thou/uL (0.11-0.59); #Neutrophils 8.1 thou/uL (1.40-6.50); %Basophils 0.4 % (0.0-1.0); %Lymphocytes 11.9 % (21.0-51.0); %Monocytes 5.2 % (0.0-10.0); Hemoglobin 11.4 g/dL (12.0-16.0); Mean Corpuscular HGB CONC 32.9 g/dL (32.0-36.0); Mean Corpuscular Hemoglobin 31.8 pg (27.0-31.0); Mean Corpuscular Volume 96.9 fl (78.0-98.0); Mean Platelet Volume 10.5 fL (7.4-10.4); Platelet Count 121 10x3/uL (130-400); RBC Distribution Width 12.8 % (11.5-14.5); Red Blood Cell (RBC) Count 3.58 mill/uL (4.20-5.40); White Blood Cell (WBC) Count 10.4 10x3/uL (4.8-10.8)
[2022-10-17] MEDS: Atorvastatin Calcium 20 MG TAB PO SCH (19:44)
[2022-10-17] MEDS: Aspirin 81 mg Enteric Coated Tablet PO SCH (19:47)
[2022-10-18 04:15] VITALS: TEMP 98.2
[2022-10-18] MEDS: traMADol HCl 50 MG TAB PO SCH (06:28)
[2022-10-18] MEDS: HumaLOG 300 UNITS/3 ML VIAL SC PRN (06:29)
[2022-10-18] MEDS: Acetaminophen 500 MG TAB PO SCH (06:29)
[2022-10-18] MEDS: Escitalopram Oxalate 10 mg Tablet PO SCH (08:09)
[2022-10-18] MEDS: Levothyroxine Sodium 100 MCG TAB PO SCH (08:09)
[2022-10-18] MEDS: Cholecalciferol 1,000 UNITS (25 MCG) TAB PO SCH (08:10)
[2022-10-18] MEDS: clonazePAM 0.5 MG TAB PO SCH (08:10)
[2022-10-18] MEDS: Propranolol HCl 20 MG TAB PO SCH (08:11)
[2022-10-18] MEDS: Cyclobenzaprine 10 MG TAB PO PRN (10:53)
[2022-10-18 11:33] VITALS: BP 118/80
== END 2022-10-18 11:33 | disposition swing bed (61) | DRG 535 ==
LOC: ERS 05:19 → SURG A 14:44
PROVIDERS: ADMIT Specialist; ATTEND Specialist
DX: S32.601A Unspecified fracture of right ischium, initial encounter for closed fracture (principal); S32.471A Displaced fracture of medial wall of right acetabulum, initial encounter for closed fracture; S32.591A Other specified fracture of right pubis, initial encounter for closed fracture; S32.501A Unspecified fracture of right pubis, initial encounter for closed fracture; Z91.81 History of falling; S32.301A Unspecified fracture of right ilium, initial encounter for closed fracture; E11.9 Type 2 diabetes mellitus without complications; I10 Essential (primary) hypertension; W01.0XXA Fall on same level from slipping, tripping and stumbling without subsequent striking against object, initial encounter; E78.5 Hyperlipidemia, unspecified; F32.A Depression, unspecified; Z96.641 Presence of right artificial hip joint; Z90.49 Acquired absence of other specified parts of digestive tract; Z90.710 Acquired absence of both cervix and uterus; Z98.890 Other specified postprocedural states; Z87.891 Personal history of nicotine dependence; Z79.82 Long term (current) use of aspirin; Z79.899 Other long term (current) drug therapy
CPT/HCPCS: 36415; 36416; 51701; 70450; 71045; 72125; 72170; 72192; 80053; 81001; 85025; 96374; 96375; G0390; J1650; J1815; J1885; J2405; J3010; J7030

== ENCOUNTER 2023-02-03 13:47 | Outpatient (CLI) | payer MEDICARE, OTHER | END 2023-02-03 13:48 | disposition home or self-care (01) | LOC: BICMAMMO 13:47 | PROVIDERS: ATTEND Internal Medicine | DX: Z12.31 Encounter for screening mammogram for malignant neoplasm of breast (principal) | CPT/HCPCS: 77063; 77067 ==

== ENCOUNTER 2023-04-15 11:20 | Outpatient (CLI) | payer MEDICARE, OTHER | END 2023-04-15 11:21 | disposition home or self-care (01) | LOC: SCSMRI 11:20 | PROVIDERS: ATTEND Neurological Surgery | DX: M50.30 Other cervical disc degeneration, unspecified cervical region (principal); M47.812 Spondylosis without myelopathy or radiculopathy, cervical region | CPT/HCPCS: 72141 ==

== ENCOUNTER 2024-04-21 12:16 | Outpatient (CLI) | payer MEDICARE, OTHER | END 2024-04-21 12:17 | disposition home or self-care (01) | LOC: BICMAMMO 12:16 | PROVIDERS: ATTEND Internal Medicine | DX: Z12.31 Encounter for screening mammogram for malignant neoplasm of breast (principal) | CPT/HCPCS: 77063; 77067 ==

== ENCOUNTER 2025-01-25 09:19 | Outpatient (CLI) | payer MEDICARE, OTHER | END 2025-01-25 09:20 | disposition home or self-care (01) | LOC: BICMAMMO 09:19 | PROVIDERS: ATTEND Internal Medicine Endocrinology, Diabetes & Metabolism | DX: M85.89 Other specified disorders of bone density and structure, multiple sites (principal) | CPT/HCPCS: 77080 ==